=== PATIENT | male | born 1945 | race Caucasian/White ===

== ENCOUNTER 2018-12-15 17:56 | Inpatient (IN) ==
--- NOTE | 2018-12-15 19:21 | DR.EXTPAIN ---
HPI Time seen Time Seen by Provider: 12/15/18 19:18 PCP Primary Care Physician: BECKA Complaint/Symptoms Chief Complaint Doctor Comments: WEAKNESS EXTREMITIES AND ABDOMINAL PAIN WITH NAUSEA. Chief Complaint:: PT STATE HE IS HAVING WEAKNESS TO BILATERAL LEGS AND ARMS. PT STATES HE IS ALSO HAVING ABD PAIN. Nurses notes reviewed Nurses Notes Review: Yes Source History Provided: Patient Mode of arrival Mode of Arrival: Wheelchair Timing Onset of Chief Complaint: 12/08/18 Context History of: None Associated signs and symptoms Associated Signs and Symptoms: None, Weakness, Pain, Abdominal Pain and Nausea PMH PMH Past Medical History: Yes Past Medical History Comment: NEUROPATHY, LOWER AND UPPER BACK PAIN Past Surgical History: Yes Past Surgical History Comment: RT FEMUR SURGERY. Family History History of Family Medical Conditions: No Social History Does patient currently use any type of tobacco product: Yes Have you used tobacco products in the last 12 months: Yes Type of Tobacco Use: Cigarettes Does any household member use tobacco: Yes Alcohol Use: None Do you use any recreational Drugs:: No Lives With: Alone Lives Where: Home infectious screening In the last 2 months have you had wt loss of >10#?: NO Have you had fever, night sweats or hemotysis?: No Have you traveled outside the country in the last 6 months?: No Isolation: Standard ROS Review of Systems Constitutional: Weakness and Fatigue; negative Fever Eyes: No Symptoms Reported ENTM: No Symptoms Reported Respiratoy: No Symptoms Reported Cardiovascular: No Symptoms Reported Gastrointestinal/Abdominal: Abdominal Pain and Nausea Genitourinary: No Symptoms Reported Neurological: Weakness Musculoskeletal: No Symptoms Reported Integumentary: No Symptoms Reported Hematologic/Lymphatic: No Symptoms Reported Endocrine: No Symptoms Reported Psychiatric: No Symptoms Reported All Other Systems: Reviewed and Negative PE Vital Signs Vitals: Temperature 97.8 F Pulse Rate [Right] 83 Pulse Rate 90 Respiratory Rate 20 Blood Pressure [Right Arm] 125/67 Blood Pressure [Left Arm] 134/67 Blood Pressure 103/57 O2 Sat by Pulse Oximetry 92 General Limitations: No Limitations General Appearance: Alert and In No Apparent Distress Head Head Exam: Normal Inspection Eyes Eye exam: Normal Appearance ENT ENT Exam: Normal External Ear Exam Neck Neck Exam: Normal Inspection Chest Chest Inspection: Normal Inspection and Symmetric Chest Wall Rise Respiratory Respiratory Exam: Normal Lung Sounds Bilat Respiratory Exam: Bilateral: Clear to Auscultation Cardiovascular Cardiovascular Exam: Regular Rate and Normal Rhythm Abdominal Exam Abdominal Exam: Normal Bowel Sounds, Soft and Tenderness Abdominal Tenderness: Diffuse and Moderate Extremities Extremities Exam: Normal Inspection Back Back Exam: Normal Inspection Neurological Neurological Exam: Alert, Oriented X3 and CN II-XII Intact Psychiatric Psychiatric Exam: Normal Affect and Normal Mood Skin Skin Exam: Warm, Dry, Intact and Normal Color MDM Differential Diagnosis Differential Diagnosis: Other (ABDOMINAL PAIN, WEAKNESS, BOWEL OBST, UTI.) COURSE Treatment Treatment: SEE ORDERS. Consultation Consultation Comments: PATIENT ADMITTED BY DR. JOVEL. Education/Counseling Education/Counseling: Patient Educated On: Diagnosis ROR Labs Reviewed Laboratory Results Reviewed?: Yes Result Diagrams: 12/22/18 05:12 12/22/18 05:12 Laboratory: WBC 4.8 X10^3/uL (3.6-10.0) 12/22/18 05:12 RBC 2.49 X10^6/uL (4.7-6.0) L 12/22/18 05:12 Hgb 8.6 g/dL (13.5-18.0) L 12/22/18 05:12 Hct 25.8 % (42.0-54.0) L 12/22/18 05:12 MCV 103.7 fL (80.0-100.0) H 12/22/18 05:12 MCH 34.4 pg (27.0-34.0) H 12/22/18 05:12 MCHC 33.2 g/dL (33.0-35.0) 12/22/18 05:12 RDW 14.8 % (11.6-16.5) 12/22/18 05:12 Plt Count 182 X10^3/uL (150.0-450.0) 12/22/18 05:12 Plt Count Comment Adequate (ADEQUATE) 12/20/18 04:50 MPV 7.7 fL (7.4-11.0) 12/22/18 05:12 Neut % (Auto) 71.6 % (42.0-75.0) 12/22/18 05:12 Lymph % (Auto) 18.7 % (21.0-51.0) L 12/22/18 05:12 [place] % (Auto) 8.6 % (0.0-13.0) 12/22/18 05:12 Eos % (Auto) 0.3 % (0.9-2.9) L 12/22/18 05:12 Baso % (Auto) 0.8 % (0.2-1.0) 12/22/18 05:12 Neut # (Auto) 3.5 x10^3/uL (2.2-4.8) 12/22/18 05:12 Lymph # (Auto) 0.9 X10^3/uL (1.3-2.9) L 12/22/18 05:12 [place] # (Auto) 0.4 x10^3/uL (0.3-0.8) 12/22/18 05:12 Eos # (Auto) 0.0 x10^3/uL (0.0-0.2) 12/22/18 05:12 Baso # (Auto) 0.0 X10^3/uL (0.0-0.1) 12/22/18 05:12 Absolute Nucleated RBC 0.1 /100WBC 12/22/18 05:12 Plt Morphology Comment Normal (NORMAL) 12/20/18 04:50 RBC Morphology Normal (NORMAL) 12/20/18 04:50 Sodium 138 mmol/L (136-145) 12/22/18 05:12 Corrected Sodium 138 mmol/L (136-145) 12/22/18 05:12 Potassium 3.7 mmol/L (3.5-5.1) 12/22/18 05:12 Chloride 104 mmol/L (98-107) 12/22/18 05:12 Carbon Dioxide 20.8 mmol/L (21-32) L 12/22/18 05:12 BUN 4 mg/dL (7-18) L 12/22/18 05:12 Creatinine 0.99 mg/dL (0.70-1.30) 12/22/18 05:12 Est GFR (MDRD) Af Amer > 60 (>60) 12/22/18 05:12 Est GFR (MDRD) Non-Af > 60 (>60) 12/22/18 05:12 Glucose 114 mg/dL (65-99) H 12/22/18 05:12 Calcium 7.9 mg/dL (8.5-10.1) L 12/22/18 05:12 Corrected Calcium 9.7 mg/dL (8.5-10.1) 12/22/18 05:12 Magnesium 1.8 mg/dL (1.7-2.9) 12/17/18 05:13 Iron 73 ug/dL (50-175) 12/16/18 04:43 Transferrin 89 mg/dL (202-364) L 12/16/18 04:43 Ferritin 446 ng/mL (26-388) H 12/16/18 04:43 Total Bilirubin 0.20 mg/dL (0.2-1.0) 12/22/18 05:12 AST 40 Units/L (15-37) H 12/22/18 05:12 ALT 12 Units/L (12-78) 12/22/18 05:12 Alkaline Phosphatase 172 Units/L (46-116) H 12/22/18 05:12 Total Protein 4.9 g/dL (6.4-8.2) L 12/22/18 05:12 Albumin 1.7 g/dL (3.4-5.0) L 12/22/18 05:12 Globulin 3.2 g/dL (2.5-4.5) 12/22/18 05:12 Albumin/Globulin Ratio 0.5 Ratio (1.1-2.1) L 12/22/18 05:12 Amylase 9 Units/L (25-115) L 12/17/18 05:13 Lipase 32 Units/L (73-393) L 12/17/18 05:13 Total PSA 0.15 ng/mL (0.13-4.0) 12/16/18 04:43 Vitamin B12 999 pg/mL (193-986) H 12/16/18 04:43 Folate 16.8 ng/mL (>8.6) 12/16/18 04:43 Specimen Type Clean catch urine 12/15/18 21:07 Urine Color Yellow (YELLOW) 12/15/18 21:07 Urine Appearance Clear (CLEAR) 12/15/18 21:07 Urine pH 5.0 (5.0 - 8.0) 12/15/18 21:07 Ur Specific [place] 1.010 (1.000-1.030) 12/15/18 21:07 Urine Protein 1+ (NEGATIVE) 12/15/18 21:07 Urine Glucose (UA) Negative (NEGATIVE) 12/15/18 21:07 Urine Ketones Negative (NEGATIVE) 12/15/18 21:07 Urine Occult Blood Negative (NEGATIVE) 12/15/18 21:07 Urine Nitrite Negative (NEGATIVE) 12/15/18 21:07 Urine Bilirubin Negative (NEGATIVE) 12/15/18 21:07 Urine Urobilinogen Normal (NORMAL) 12/15/18 21:07 Ur Leukocyte Esterase Negative (NEGATIVE) 12/15/18 21:07 Urine RBC None seen /HPF (NONE SEEN) 12/15/18 21:07 Urine WBC 0-2 /HPF (NONE SEEN) 12/15/18 21:07 Ur Squamous Epith Cells Few /HPF (NEGATIVE) 12/15/18 21:07 Amorphous Sediment Trace /HPF (NEGATIVE) 12/15/18 21:07 Urine Bacteria Trace /HPF (NEGATIVE) 12/15/18 21:07 Hyaline Casts Rare /LPF (NEGATIVE) 12/15/18 21:07 Ur Culture Indicated? No/not indicated 12/15/18 21:07 XRAY XRAY Interpreted by: Radiologist XRAY Findings: REPORT ON RECORD NOTED.
[2018-12-15 19:54] LABS: BASOPHILS # (AUTO) 0.1 X10^3/uL (0.0-0.1); BASOPHILS % (AUTO) 1.3 % (0.2-1.0); EOSINOPHILS # (AUTO) 0.1 x10^3/uL (0.0-0.2); EOSINOPHILS % (AUTO) 0.8 % (0.9-2.9); HEMATOCRIT 32.6 % (42.0-54.0); LYMPHOCYTES % (AUTO) 27.7 % (21.0-51.0); MEAN CORPUSCULAR HEMOGLOBIN 34.4 pg (27.0-34.0); MEAN CORPUSCULAR HGB CONC 33.7 g/dL (33.0-35.0); MEAN CORPUSCULAR VOLUME 102.1 fL (80.0-100.0); MEAN PLATELET VOLUME 7.6 fL (7.4-11.0); MONOCYTES # (AUTO) 0.5 x10^3/uL (0.3-0.8); MONOCYTES % (AUTO) 7.6 % (0.0-13.0); NEUTROPHILS # (AUTO) 4.5 x10^3/uL (2.2-4.8); NEUTROPHILS % (AUTO) 62.6 % (42.0-75.0); PLATELET COUNT 349 X10^3/uL (150.0-450.0); RED BLOOD COUNT 3.19 X10^6/uL (4.7-6.0); RED CELL DISTRIBUTION WIDTH 14.8 % (11.6-16.5); WHITE BLOOD COUNT 7.2 X10^3/uL (3.6-10.0)
[2018-12-15 20:03] LABS: ALANINE AMINOTRANSFERASE 18 Units/L (12-78); ALBUMIN 2.2 g/dL (3.4-5.0); ALKALINE PHOSPHATASE 269 Units/L (46-116); AMYLASE 10 Units/L (25-115); ASPARTATE AMINO TRANSFERASE 113 Units/L (15-37); BLOOD UREA NITROGEN 7 mg/dL (7-18); CALCIUM 8.2 mg/dL (8.5-10.1); CARBON DIOXIDE 20.8 mmol/L (21-32); CHLORIDE 101 mmol/L (98-107); COR CA(FOR HYPOALB) 9.6 mg/dL (8.5-10.1); COR NA(FOR HYPERGLY) 137 mmol/L (136-145); CREATININE 1.36 mg/dL (0.70-1.30); LIPASE 31 Units/L (73-393); SODIUM 137 mmol/L (136-145); eGFR NON BLACK RACES 55 (>60)
--- NOTE | 2018-12-15 21:13 | RAD ---
HISTORY: Abdominal pain, nausea Study: Acute abdominal series Comparison: None Findings: There is a single mildly dilated small bowel loop in the mid abdomen with the remaining bowel loops appearing normal in caliber. No gross free intraperitoneal air. No pathological soft tissue mass or calcification can be observed. There are severe degenerative changes of the bilateral hip joints that may be related to avascular necrosis with a partially visualized screw in the right femoral head. Lungs are clear. IMPRESSION: 1. Nonspecific bowel gas pattern with single mildly dilated small bowel loop in the mid to lower abdomen; the remaining bowel loops are unremarkable. Reported By:
[2018-12-15 21:19] LABS: BILIRUBIN,URINE NEGATIVE (NEGATIVE); BLOOD/HEMOGLOBIN,URINE NEGATIVE (NEGATIVE); GLUCOSE, URINE NEGATIVE (NEGATIVE); KETONES,URINE NEGATIVE (NEGATIVE); LEUKOCYTE ESTERASE ,URINE NEGATIVE (NEGATIVE); NITRITES,URINE NEGATIVE (NEGATIVE); PROTEIN,URINE 1+ (NEGATIVE); UROBILINOGEN,URINE NORMAL (NORMAL)
[2018-12-15 21:22] LABS: APPEARANCE,URINE CLEAR (CLEAR); COLOR,URINE YELLOW (YELLOW)
[2018-12-15 21:23] LABS: AMORPHOUS SEDIMENT,UR TRACE /HPF (NEGATIVE); BACTERIA,URINE TRACE /HPF (NEGATIVE); HYALINE CASTS, URINE RARE /LPF (NEGATIVE); RBC,URINE NONE SEEN /HPF (NONE SEEN); SQUAMOUS EPITHELIAL CELL,UR FEW /HPF (NEGATIVE)
[2018-12-15] MEDS ORDERED: NEURONTIN CAP 100 MG PO PRN (22:51)
[2018-12-15] MEDS ORDERED: PATIENT'S HOME MEDICATION (Oxycodone-Acetaminophen [Oxycodone-Acetaminophen] 1 TAB) PO PRN (22:51)
[2018-12-15] MEDS: ROXICODONE TAB 5 MG PO PRN (23:14)
[2018-12-15] MEDS: NS 1000 ML 1,000 ML IV SCH (23:14)
[2018-12-15] MEDS: TYLENOL 325 MG TAB PO PRN (23:15)
[2018-12-15] MEDS: PREVACID PO SCH (23:15)
[2018-12-16 00:41] VITALS: BMI 25.2
[2018-12-16] MEDS ORDERED: LANTISEPTIC ONE (01:28)
[2018-12-16] MEDS: LANTISEPTIC TOP PRN ×2 (01:30→23:20)
[2018-12-16] MEDS ORDERED: POTASSIUM CHL 40 MEQ/NS 0.45% 500 ML IV PRN (02:17)
[2018-12-16] MEDS ORDERED: KLOR-CON PO PRN (02:17)
[2018-12-16] MEDS ORDERED: POTASSIUM CHL 60 MEQ/NS 0.45% 500 ML IV PRN (02:17)
[2018-12-16] MEDS ORDERED: POTASSIUM CHLORIDE LIQ 20 MEQ UDC PO PRN (02:17)
[2018-12-16] MEDS ORDERED: K-RIDER 10 MEQ/NS 100 ML 10 MEQ/100 ML BAG IV PRN (02:17)
[2018-12-16] MEDS ORDERED: MICRO K EXTEN CAP 10 MEQ PO PRN (02:17)
[2018-12-16] MEDS ORDERED: KLOR-CON PO ONE (02:21)
[2018-12-16] MEDS ORDERED: MAGNESIUM SULFATE 1 GRAM/100 mL PREMIX 4 G/400 ML BAG IV ONE (02:22)
[2018-12-16] MEDS: MAGNESIUM SULFATE 1 GRAM/100 mL PREMIX 1 GM/100 ML BAG IV PRN ×4 (02:25→05:32)
[2018-12-16] MEDS: ROXICODONE TAB 5 MG PO PRN ×5 (05:10→23:14)
[2018-12-16] MEDS: TYLENOL 325 MG TAB PO PRN ×3 (05:11→23:13)
[2018-12-16 05:21] LABS: BASOPHILS # (AUTO) 0.1 X10^3/uL (0.0-0.1); BASOPHILS % (AUTO) 1.1 % (0.2-1.0); EOSINOPHILS # (AUTO) 0.1 x10^3/uL (0.0-0.2); EOSINOPHILS % (AUTO) 0.7 % (0.9-2.9); HEMATOCRIT 31.9 % (42.0-54.0); HEMOGLOBIN 10.6 g/dL (13.5-18.0); LYMPHOCYTES # (AUTO) 2.5 X10^3/uL (1.3-2.9); LYMPHOCYTES % (AUTO) 30.5 % (21.0-51.0); MEAN CORPUSCULAR HGB CONC 33.1 g/dL (33.0-35.0); MEAN CORPUSCULAR VOLUME 102.9 fL (80.0-100.0); MEAN PLATELET VOLUME 7.4 fL (7.4-11.0); MONOCYTES # (AUTO) 0.8 x10^3/uL (0.3-0.8); MONOCYTES % (AUTO) 9.3 % (0.0-13.0); NEUTROPHILS # (AUTO) 4.7 x10^3/uL (2.2-4.8); NEUTROPHILS % (AUTO) 58.4 % (42.0-75.0); PLATELET COUNT 298 X10^3/uL (150.0-450.0); RED CELL DISTRIBUTION WIDTH 14.8 % (11.6-16.5); WHITE BLOOD COUNT 8.1 X10^3/uL (3.6-10.0)
[2018-12-16 05:36] LABS: ALANINE AMINOTRANSFERASE 20 Units/L (12-78); ALKALINE PHOSPHATASE 251 Units/L (46-116); ASPARTATE AMINO TRANSFERASE 118 Units/L (15-37); BLOOD UREA NITROGEN 6 mg/dL (7-18); CARBON DIOXIDE 20.8 mmol/L (21-32); CHLORIDE 103 mmol/L (98-107); COR CA(FOR HYPOALB) 9.6 mg/dL (8.5-10.1); SODIUM 139 mmol/L (136-145); TOTAL PROTEIN 5.5 g/dL (6.4-8.2); eGFR NON BLACK RACES 53 (>60)
[2018-12-16 05:49] LABS: IRON 73 ug/dL (50-175)
[2018-12-16] MEDS: FLONASE NASAL SPRAY ENOSTRIL SCH (08:34)
[2018-12-16] MEDS: K-DUR TAB 20 MEQ PO PRN (08:35)
[2018-12-16] MEDS: NICOTINE PATCH TD SCH ×2 (08:35)
[2018-12-16] MEDS: PREVACID PO SCH (08:35)
[2018-12-16] MEDS ORDERED: ZOFRAN INJ 4 MG VIAL IVP PRN (08:42)
[2018-12-16] MEDS ORDERED: ZYLOPRIM PO SCH (09:00)
[2018-12-16] MEDS: MAG-OX TAB PO SCH (10:16)
[2018-12-16] MEDS: FLOMAX PO SCH (13:48)
--- NOTE | 2018-12-16 15:08 | DR.H&P ---
H&P - History & Physical for Day of: H&P Date: 12/15/18 - Chief Complaint Chief Complaint: WEAKNESS, ABDOMINAL PAIN, N/V - History of Present Illness History of Present Illness: IS A 73 YEAR OLD PATIENT OF OURS WHO PRESENTED TO THE ER WITH COMPLAINTS OF WEAKNESS TO BILATERAL ARMS AND LEGS WELL ABDOMINAL PAIN WITH ASSOICATED NAUSEA AND VOMITING. HE REPORTS THAT SYMPTOMS HAVE BEEN PRESENT FOR APPROXIMATELY ONE WEEK. HE REPORTS BEING UNABLE TO WALK WITHOUT THE ASSISTANCE OF HIS GRANDSON. ON ARRIVAL, VITLAS WERE 97.0-90-20-96%-103/57. LABS WERE OBTAINED. ABNORMAL LAB VALUES INCLUDE THE FOLLOWING: RBC 3.19, HGB 11.0, HCT 32.6, POTASSIUM 3.3, CARBON DIOXIDE 20.8, CREATININE 1.36, GLUCOSE 113, CALCIUM 8.2, MAGNESIUM 1.2, AST 113, ALK PHOS 269, TOTAL PROTEIN 6.0, ALBUMIN 2.2, AMYLASE 10, LIPASE 31. AN ABDOMEN XRAY WAS OBTA INED AND REVEALED: Nonspecific bowel gas pattern with single mildly dilated small bowel loop in the mid to lower abdomen; the remaining bowel loops are unremarkable. HE WAS ADMITTED FOR FURTHER EVALUATION AND TREATMENT OF GENERALIZED WEAKNESS, DEHYDRATION, AND ABDOMINAL PAIN. HE WAS STARTED ON NORMAL SALINE AT 80ML/HR. WE PLAN TO OBTAIN A GALLBLADDER US IN THE MORNING. OTHERWISE, WE WILL FOLLOW UP WITH AM LABS AND CONTINUE TO MONITOR. - Past Medical History Past Medical History: GERD, Gout - Past Surgical History Surgical History: Ortho Surgery, Other - Family History Family Medical History: Diabetes Mellitus, Hypertension - Social History Does patient currently use any type of tobacco product: Yes Have you used tobacco products in the last 12 months: Yes Type of Tobacco Use: Cigarettes How many years tobacco product used: 55 Does any household member use tobacco: Yes Alcohol Use: None Drug Use: None - Medications Home Medications: NSAIDS (Non-Steroidal Anti-Inflamma Allergy (Verified 12/11/18 13:20) CONTINUE taking the following medications lansoprazole [Prevacid] 30 mg PO QDAY 12/15/18 [History] - Review of Systems Constitutional: See HPI, Weakness Eyes: No Symptoms Reported ENT: No Symptoms Reported Respiratory: No Symptoms Reported Cardiovascular: No Symptoms Reported Gastrointestinal: Nausea, Vomiting, Abdominal Pain Genitourinary: No Symptoms Reported Musculoskeletal: No Symptoms Reported Skin: No Symptoms Reported Neurological: Weakness - Physical Exam Vital Signs: Temperature 98.1 F Pulse Rate [Right] 84 Pulse Rate 90 Respiratory Rate 20 Blood Pressure [Right Arm] 131/70 Blood Pressure [Left Arm] 114/55 Blood Pressure 103/57 O2 Sat by Pulse Oximetry 93 Oriented: Normal Eyes: Normal Ear: Normal Nose: Normal Throat: Normal Respiratory: Diminished Throughout Cardiovascular: Normal : Normal Auscultation: Bowel Sounds: Normal Palpation: Normal Tenderness: Normal Skin: Normal Musculoskeletal: Normal Psychiatric: Normal Mood Description: Calm Affect: Normal Speech Pattern: Clear - Assessment/Plan (1) Dehydration Status: Acute Plan: NORMAL SALINE AT 80ML/HR, CONTINUE TO MONITOR (2) Abdominal pain Qualifiers: Abdominal location: generalized Qualified Code(s): R10.84 - Generalized abdominal pain Status: Acute Plan: GALLBLADDER US TODAY, CONTINUE TO MONITOR (3) Anemia Qualifiers: Anemia type: unspecified type Qualified Code(s): D64.9 - Anemia, unspecified Status: Acute (4) Weakness Status: Acute Plan: PHYSICAL THERAPY, CONTINUE TO MONITOR - Allergies Allergies/Adverse Reactions: Allergies Allergy/AdvReac Type Severity Reaction Status Date / Time NSAIDS (Non-Steroidal Allergy Verified 12/11/18 13:20 Anti-Inflamma
[2018-12-16] MEDS: NS 1000 ML 1,000 ML IV SCH (15:41)
--- NOTE | 2018-12-16 16:36 | US ---
HISTORY: Right upper quadrant pain Study: Right upper quadrant ultrasound: Multiplanar ultrasonographic examination of the right upper abdominal quadrant was performed. Comparison: None Findings: On the images submitted to me the liver is mildly to moderately fatty infiltrated. No evidence of intrahepatic biliary duct dilatation is noted. Vascular flow was in normal direction. The gallbladder wall appears nodular with several echogenic foci present. I see no evidence of ring down, however, this could be due to adenomyomatosis. There also appears to be probably a gallstone measuring at least 9.5 mm in maximum dimension. The gallbladder wall overall is mildly thickened. The common bile duct is normal at 1 mm. The right kidney as visualized is small measuring 7.8 cm in length. Cortex is measured at 11.2 mm. The pancreas is moderately obscured secondary to bowel gas. The abdominal aorta shows [id number] atherosclerotic change. No evidence of aneurysm is noted. IMPRESSION: 1. Moderate fatty infiltration of the liver. 2. Mildly contracted thick-walled gallbladder suggestive of possibility of chronic cholecystitis. In addition there appears to be findings suggesting adenomyomatosis as well as possibly calcifications within the gallbladder wall and gallstones. 3. I see no evidence of pericholecystic fluid or gallbladder wall thickening. 4. Moderately atrophic kidney with moderate cortical atrophy. Reported By:
--- NOTE | 2018-12-16 21:24 | PCM.PROG ---
Progress Note - Progress Note for Day of Date of Exam: 12/16/18 - Subjective Subjective: WAS ADMITTED FOR DEHYDRATION, ABDOMINAL PAIN, AND GENERALIZED WEAKNESS. HE REPORTS DIFFICULTY URINATING TODAY. ON EXAMINATION, HEART IS REGULAR IN RATE AND RHYTHM. BILATERAL LUNGS ARE NOTED WITH DIMINISHED LUNG SOUNDS THROUGHOUT. ABDOMEN IS ROUND, SOFT, AND NOTED WITH DIFFUSE TENDER NESS THROUGHOUT. NORMAL BOWEL SOUNDS NOTED IN ALL QUADRANTS. HIS VITALS THIS MORNING ARE 98.1-69-20-94%-129/79. LABS WERE OBTAINED. ABNORMAL LAB VALUES INCLUDE THE FOLLOWING: RBC 3.10, HGB 10.6, HCT 31.9, CARBON DIOXIDE 20.8, BUN 6, CREATININE 1.40, GLUCOSE 103, CALCIUM 8.0, TRANSFERRIN 89, FERRITIN 446, AST 118, ALK PHOS 251, TOTAL PROTEIN 5.5, ALBUMIN 2.0, VITAMIN B12 999. WE WILL OBTAIN A GALLBLADDER US AND OBTAIN A PSA LEVEL TODAY. WE WILL START FLOMAX 0.4MG PO DAILY. OTHERWISE, WE WILL FOLLOW UP WITH AM LABS AND CONTINUE TO MONITOR. - Past Medical Family Social History Past Med/Fam/Surg Hx: No changes since H&P Allergies: Allergies NSAIDS (Non-Steroidal Anti-Inflamma Allergy (Verified 12/11/18 13:20) - Review of Systems ROS: No change since H&P - Vital Signs and I&O's Vital Signs: Temperature 98.4 F Pulse Rate [Right] 80 Pulse Rate 90 Respiratory Rate 20 Blood Pressure [Right Arm] 147/76 Blood Pressure [Left Arm] 114/55 Blood Pressure 103/57 O2 Sat by Pulse Oximetry 97 Intake and Output: Intake & Output 12/14/18 12/15/18 12/16/18 12/17/18 11:59 11:59 11:59 11:59 Intake Total 720 / 720 1087 / 1087 Output Total 425 / 425 150 / 150 Balance 295 / 295 937 / 937 - Physical Exam Oriented: Normal Eyes: Normal Ear: Normal Nose: Normal Throat: Normal Respiratory: Generalized, Diminished Cardiovascular: Normal : Normal Auscultation: Bowel Sounds: Normal Tenderness: Diffuse, Moderate. negative: Rebound, Guarding, Rigidity Skin: Normal Musculoskeletal: Normal Psychiatric: Normal Mood Description: Calm Affect: Normal Speech Pattern: Clear - Laboratory and Diagnostics Result Diagrams: 12/16/18 04:43 12/16/18 04:43 Labs: Laboratory WBC 8.1 X10^3/uL (3.6-10.0) 12/16/18 04:43 RBC 3.10 X10^6/uL (4.7-6.0) L 12/16/18 04:43 Hgb 10.6 g/dL (13.5-18.0) L 12/16/18 04:43 Hct 31.9 % (42.0-54.0) L 12/16/18 04:43 MCV 102.9 fL (80.0-100.0) H 12/16/18 04:43 MCH 34.0 pg (27.0-34.0) 12/16/18 04:43 MCHC 33.1 g/dL (33.0-35.0) 12/16/18 04:43 RDW 14.8 % (11.6-16.5) 12/16/18 04:43 Plt Count 298 X10^3/uL (150.0-450.0) 12/16/18 04:43 MPV 7.4 fL (7.4-11.0) 12/16/18 04:43 Neut % (Auto) 58.4 % (42.0-75.0) 12/16/18 04:43 Lymph % (Auto) 30.5 % (21.0-51.0) 12/16/18 04:43 [place] % (Auto) 9.3 % (0.0-13.0) 12/16/18 04:43 Eos % (Auto) 0.7 % (0.9-2.9) L 12/16/18 04:43 Baso % (Auto) 1.1 % (0.2-1.0) H 12/16/18 04:43 Neut # (Auto) 4.7 x10^3/uL (2.2-4.8) 12/16/18 04:43 Lymph # (Auto) 2.5 X10^3/uL (1.3-2.9) 12/16/18 04:43 [place] # (Auto) 0.8 x10^3/uL (0.3-0.8) 12/16/18 04:43 Eos # (Auto) 0.1 x10^3/uL (0.0-0.2) 12/16/18 04:43 Baso # (Auto) 0.1 X10^3/uL (0.0-0.1) 12/16/18 04:43 Absolute Nucleated RBC 0.1 /100WBC 12/16/18 04:43 Sodium 139 mmol/L (136-145) 12/16/18 04:43 Corrected Sodium TNP 12/16/18 04:43 Potassium 3.7 mmol/L (3.5-5.1) 12/16/18 04:43 Chloride 103 mmol/L (98-107) 12/16/18 04:43 Carbon Dioxide 20.8 mmol/L (21-32) L 12/16/18 04:43 BUN 6 mg/dL (7-18) L 12/16/18 04:43 Creatinine 1.40 mg/dL (0.70-1.30) H 12/16/18 04:43 Est GFR (MDRD) Af Amer > 60 (>60) 12/16/18 04:43 Est GFR (MDRD) Non-Af 53 (>60) L 12/16/18 04:43 Glucose 103 mg/dL (65-99) H 12/16/18 04:43 Calcium 8.0 mg/dL (8.5-10.1) L 12/16/18 04:43 Corrected Calcium 9.6 mg/dL (8.5-10.1) 12/16/18 04:43 Magnesium 2.0 mg/dL (1.7-2.9) 12/16/18 04:43 Iron 73 ug/dL (50-175) 12/16/18 04:43 Transferrin 89 mg/dL (202-364) L 12/16/18 04:43 Ferritin 446 ng/mL (26-388) H 12/16/18 04:43 Total Bilirubin 0.20 mg/dL (0.2-1.0) 12/16/18 04:43 AST 118 Units/L (15-37) H 12/16/18 04:43 ALT 20 Units/L (12-78) 12/16/18 04:43 Alkaline Phosphatase 251 Units/L (46-116) H 12/16/18 04:43 Total Protein 5.5 g/dL (6.4-8.2) L 12/16/18 04:43 Albumin 2.0 g/dL (3.4-5.0) L 12/16/18 04:43 Globulin 3.5 g/dL (2.5-4.5) 12/16/18 04:43 Albumin/Globulin Ratio 0.6 Ratio (1.1-2.1) L 12/16/18 04:43 Amylase 10 Units/L (25-115) L 12/15/18 19:30 Lipase 31 Units/L (73-393) L 12/15/18 19:30 Total PSA 0.15 ng/mL (0.13-4.0) 12/16/18 04:43 Vitamin B12 999 pg/mL (193-986) H 12/16/18 04:43 Folate 16.8 ng/mL (>8.6) 12/16/18 04:43 Specimen Type Clean catch urine 12/15/18 21:07 Urine Color Yellow (YELLOW) 12/15/18 21:07 Urine Appearance Clear (CLEAR) 12/15/18 21:07 Urine pH 5.0 (5.0 - 8.0) 12/15/18 21:07 Ur Specific [place] 1.010 (1.000-1.030) 12/15/18 21:07 Urine Protein 1+ (NEGATIVE) 12/15/18 21:07 Urine Glucose (UA) Negative (NEGATIVE) 12/15/18 21:07 Urine Ketones Negative (NEGATIVE) 12/15/18 21:07 Urine Occult Blood Negative (NEGATIVE) 12/15/18 21:07 Urine Nitrite Negative (NEGATIVE) 12/15/18 21:07 Urine Bilirubin Negative (NEGATIVE) 12/15/18 21:07 Urine Urobilinogen Normal (NORMAL) 12/15/18 21:07 Ur Leukocyte Esterase Negative (NEGATIVE) 12/15/18 21:07 Urine RBC None seen /HPF (NONE SEEN) 12/15/18 21:07 Urine WBC 0-2 /HPF (NONE SEEN) 12/15/18 21:07 Ur Squamous Epith Cells Few /HPF (NEGATIVE) 12/15/18 21:07 Amorphous Sediment Trace /HPF (NEGATIVE) 12/15/18 21:07 Urine Bacteria Trace /HPF (NEGATIVE) 12/15/18 21:07 Hyaline Casts Rare /LPF (NEGATIVE) 12/15/18 21:07 Ur Culture Indicated? No/not indicated 12/15/18 21:07 - Plan (1) Dehydration Status: Acute Plan: NORMAL SALINE AT 80ML/HR, CONTINUE TO MONITOR (2) Abdominal pain Status: Acute Qualifiers: Abdominal location: generalized Qualified Code(s): R10.84 - Generalized abdominal pain Plan: GALLBLADDER US TODAY, CONTINUE TO MONITOR (3) Anemia Status: Acute Qualifiers: Anemia type: unspecified type Qualified Code(s): D64.9 - Anemia, unspecified (4) Weakness Status: Acute Plan: PHYSICAL THERAPY, CONTINUE TO MONITOR
[2018-12-17] MEDS: ROXICODONE TAB 5 MG PO PRN ×3 (05:21→18:58)
[2018-12-17] MEDS: TYLENOL 325 MG TAB PO PRN ×2 (05:22→11:05)
[2018-12-17] MEDS: NS 1000 ML 1,000 ML IV SCH ×4 (05:40→21:24)
[2018-12-17 06:05] LABS: BASOPHILS % (AUTO) 0.9 % (0.2-1.0); EOSINOPHILS # (AUTO) 0.1 x10^3/uL (0.0-0.2); EOSINOPHILS % (AUTO) 1.5 % (0.9-2.9); HEMATOCRIT 26.5 % (42.0-54.0); HEMOGLOBIN 8.9 g/dL (13.5-18.0); LYMPHOCYTES # (AUTO) 1.8 X10^3/uL (1.3-2.9); LYMPHOCYTES % (AUTO) 39.5 % (21.0-51.0); MEAN CORPUSCULAR HEMOGLOBIN 34.5 pg (27.0-34.0); MEAN CORPUSCULAR HGB CONC 33.7 g/dL (33.0-35.0); MEAN CORPUSCULAR VOLUME 102.5 fL (80.0-100.0); MEAN PLATELET VOLUME 7.1 fL (7.4-11.0); MONOCYTES # (AUTO) 0.4 x10^3/uL (0.3-0.8); MONOCYTES % (AUTO) 8.9 % (0.0-13.0); NEUTROPHILS # (AUTO) 2.2 x10^3/uL (2.2-4.8); NEUTROPHILS % (AUTO) 49.2 % (42.0-75.0); PLATELET COUNT 189 X10^3/uL (150.0-450.0); RED BLOOD COUNT 2.58 X10^6/uL (4.7-6.0); RED CELL DISTRIBUTION WIDTH 14.9 % (11.6-16.5); WHITE BLOOD COUNT 4.5 X10^3/uL (3.6-10.0)
--- NOTE | 2018-12-17 06:16 | RAD ---
HISTORY: Right upper quadrant pain Study: Chest AP portable Comparison: None Findings: The heart is within normal limits in size. The ivett are normal. The lungs are hyperinflated but free of acute alveolar infiltrates. No pleural effusions are identified. The bony thorax is unremarkable. IMPRESSION: Lungs hyperinflated but clear Reported By:
[2018-12-17 06:30] LABS: ALANINE AMINOTRANSFERASE 15 Units/L (12-78); ALBUMIN 1.6 g/dL (3.4-5.0); ALKALINE PHOSPHATASE 204 Units/L (46-116); AMYLASE 9 Units/L (25-115); ASPARTATE AMINO TRANSFERASE 61 Units/L (15-37); BLOOD UREA NITROGEN 6 mg/dL (7-18); CALCIUM 7.9 mg/dL (8.5-10.1); CARBON DIOXIDE 19.9 mmol/L (21-32); CHLORIDE 107 mmol/L (98-107); COR CA(FOR HYPOALB) 9.8 mg/dL (8.5-10.1); CREATININE 1.14 mg/dL (0.70-1.30); LIPASE 32 Units/L (73-393); MAGNESIUM 1.8 mg/dL (1.7-2.9); SODIUM 140 mmol/L (136-145); TOTAL PROTEIN 4.7 g/dL (6.4-8.2); eGFR NON BLACK RACES > 60 (>60)
[2018-12-17] MEDS: NICOTINE PATCH TD SCH (08:57)
[2018-12-17] MEDS: FLONASE NASAL SPRAY ENOSTRIL SCH (09:08)
[2018-12-17] MEDS: FLOMAX PO SCH ×2 (09:08→12:59)
[2018-12-17] MEDS: ZYLOPRIM PO SCH ×2 (09:08→12:58)
[2018-12-17] MEDS: MAG-OX TAB PO SCH ×2 (09:09→12:58)
[2018-12-17] MEDS: PREVACID PO SCH (09:09)
[2018-12-17] MEDS: PROTONIX INJ 40 MG VIAL IVP SCH ×2 (11:03→21:22)
[2018-12-17] MEDS: NEURONTIN CAP 300 MG PO SCH ×3 (11:05→21:22)
[2018-12-17] MEDS: CYMBALTA PO SCH (11:05)
[2018-12-17] MEDS: PEPCID 20 MG IV PREMIX* 20 MG/50 ML BAG IV SCH ×2 (11:06→21:22)
[2018-12-17] MEDS ORDERED: ZOFRAN INJ 4 MG VIAL IVP PRN (12:05)
[2018-12-17] MEDS: DILAUDID INJ IVP PRN ×2 (12:58→21:24)
--- NOTE | 2018-12-17 14:01 | CT ---
HISTORY: Nausea, vomiting, abdominal pain Study: CT abdomen and pelvis without contrast Comparison: Ultrasound 12/16/2018 Technique: Multiple axial images of the abdomen and pelvis were obtained without IV contrast. Dose reduction techniques including Automated Exposure Control (AEC) and adjustment of mA and kV were utilized. Findings: Please note evaluation is limited without use of IV contrast. There are small bilateral pleural effusions and emphysematous changes seen at the lung bases. The liver, spleen, pancreas, and adrenal glands are unremarkable in their unenhanced CT appearance. Cholelithiasis is noted. No renal calculi or obstructive uropathy identified. Ureters are normal. No free intraperitoneal air. There is circumferential colonic bowel wall edema at the transverse and proximal descending colon and within the rectosigmoid colon suggestive of nonspecific colitis. There is perirectal and presacral fat stranding as well as a small amount of free fluid in the pelvis that, likely reactive in nature. The appendix is normal. 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 There is partially visualized trochanteric femoral nail in the right hip. Calcified plaque is seen within the aorta. No pathologically enlarged lymph nodes are identified. Urinary bladder is not well distended. IMPRESSION: 1. Scattered areas of circumferential colonic bowel wall edema in the transverse, descending and rectosigmoid colon suggestive of nonspecific colitis. There is associated perirectal and presacral fat stranding with a small amount of free fluid in the pelvis, likely reactive in nature. 2. Cholelithiasis. 3. Small bilateral pleural effusions. 4. Avascular necrosis of the bilateral hips. Reported By:
[2018-12-17] MEDS: CIPRO IV 400 MG PREMIX* 400 MG/200 ML IV.SOLN. IV SCH ×2 (18:17→21:22)
[2018-12-17] MEDS: FLAGYL IV PREMIX 500 MG BAG 500 MG/100 ML BAG IV SCH (20:45)
--- NOTE | 2018-12-17 21:17 | PCM.PROG ---
Progress Note - Progress Note for Day of Date of Exam: 12/17/18 - Subjective Subjective: WAS ADMITTED FOR DEHYDRATION, ABDOMINAL PAIN, AND GENERALIZED WEAKNESS. HE CONTINUES WITH COMPLAINTS OF ABDOMINAL PAIN TODAY. HE ALSO REPORTS PAIN TO BILATERAL UPPER AND LOWER EXTREMITIES. ON EXAMINATION, HEART IS REGULAR IN RATE AND RHYTHM. BILATERAL LUNGS ARE NOTED WITH DIMINISHED LUNG SOUNDS THROUGHOUT. ABDOMEN IS ROUND, SOFT, AND NOTED WITH DIFFUSE TENDERNESS THROUGHOUT. NORMAL BOWEL SOUNDS NOTED IN ALL QUADRANTS. HIS VITALS THIS MORNING ARE 98.2-85-18-96%-128/71. LABS WERE OBTAINED. ABNORMAL LAB VALUES INCLUDE THE FOLLOWING: RBC 2.58, HGB 8.9, HCT 26.5, CARBON DIOXIDE 19.9, BUN 6, CALCIUM 7.9, AST 61, ALK PHOS 204, TOTAL PROTEIN 4.7, ALBUMIN 1.6, AMYLASE 9, LIPASE 32. GALLBLADDER US REVEALED: Moderate fatty infiltration of the liver. Mildly contracted thick-walled gallbladder suggestive of possibility of chronic cholecystitis. In addition there appears to be findings suggesting adenomyomatosis as well as possibly calcifications within the gallbladder wall and gallstones. I see no evidence of pericholecystic fluid or gallbladder wall thickening. Moderately atrophic kidney with moderate cortical atrophy. TODAY, WE WILL START OTHERWISE, PEPCID IV, PROTNIX IV, CYMBALTA 30MG PO DAILY, AND GABAPENTIN 300MG PO TID. WE WILL CONSULT FOR POSSIBLE CHOLECYST ECTOMY. OTHERWISE, WE WILL FOLLOW UP WITH AM LABS AND CONTINUE TO MONITOR. - Past Medical Family Social History Past Med/Fam/Surg Hx: No changes since H&P Allergies: Allergies NSAIDS (Non-Steroidal Anti-Inflamma Allergy (Verified 12/11/18 13:20) - Review of Systems ROS: No change since H&P - Vital Signs and I&O's Vital Signs: Temperature 97.9 F Pulse Rate [Right] 80 Pulse Rate 90 Respiratory Rate 20 Blood Pressure [Right Arm] 128/71 Blood Pressure [Left Arm] 100/60 Blood Pressure 103/57 O2 Sat by Pulse Oximetry 94 Intake and Output: Intake & Output 12/15/18 12/16/18 12/17/18 12/18/18 11:59 11:59 11:59 11:59 Intake Total 720 / 720 1787 / 1787 990 / 990 Output Total 425 / 425 550 / 550 350 / 350 Balance 295 / 295 1237 / 1237 640 / 640 - Physical Exam Oriented: Normal Eyes: Normal Ear: Normal Nose: Normal Throat: Normal Respiratory: Generalized, Diminished Cardiovascular: Normal : Normal Auscultation: Bowel Sounds: Normal Palpation: Normal Tenderness: Diffuse, Moderate. negative: Rebound, Guarding, Rigidity Skin: Normal Musculoskeletal: Normal Psychiatric: Normal Mood Description: Calm Affect: Normal Speech Pattern: Clear, Appropriate - Laboratory and Diagnostics Result Diagrams: 12/17/18 05:13 12/17/18 05:13 Labs: Laboratory WBC 4.5 X10^3/uL (3.6-10.0) 12/17/18 05:13 RBC 2.58 X10^6/uL (4.7-6.0) L 12/17/18 05:13 Hgb 8.9 g/dL (13.5-18.0) L 12/17/18 05:13 Hct 26.5 % (42.0-54.0) L 12/17/18 05:13 MCV 102.5 fL (80.0-100.0) H 12/17/18 05:13 MCH 34.5 pg (27.0-34.0) H 12/17/18 05:13 MCHC 33.7 g/dL (33.0-35.0) 12/17/18 05:13 RDW 14.9 % (11.6-16.5) 12/17/18 05:13 Plt Count 189 X10^3/uL (150.0-450.0) 12/17/18 05:13 MPV 7.1 fL (7.4-11.0) L 12/17/18 05:13 Neut % (Auto) 49.2 % (42.0-75.0) 12/17/18 05:13 Lymph % (Auto) 39.5 % (21.0-51.0) 12/17/18 05:13 [place] % (Auto) 8.9 % (0.0-13.0) 12/17/18 05:13 Eos % (Auto) 1.5 % (0.9-2.9) 12/17/18 05:13 Baso % (Auto) 0.9 % (0.2-1.0) 12/17/18 05:13 Neut # (Auto) 2.2 x10^3/uL (2.2-4.8) 12/17/18 05:13 Lymph # (Auto) 1.8 X10^3/uL (1.3-2.9) 12/17/18 05:13 [place] # (Auto) 0.4 x10^3/uL (0.3-0.8) 12/17/18 05:13 Eos # (Auto) 0.1 x10^3/uL (0.0-0.2) 12/17/18 05:13 Baso # (Auto) 0.0 X10^3/uL (0.0-0.1) 12/17/18 05:13 Absolute Nucleated RBC 0.1 /100WBC 12/17/18 05:13 Sodium 140 mmol/L (136-145) 12/17/18 05:13 Corrected Sodium TNP 12/17/18 05:13 Potassium 4.1 mmol/L (3.5-5.1) 12/17/18 05:13 Chloride 107 mmol/L (98-107) 12/17/18 05:13 Carbon Dioxide 19.9 mmol/L (21-32) L 12/17/18 05:13 BUN 6 mg/dL (7-18) L 12/17/18 05:13 Creatinine 1.14 mg/dL (0.70-1.30) 12/17/18 05:13 Est GFR (MDRD) Af Amer > 60 (>60) 12/17/18 05:13 Est GFR (MDRD) Non-Af > 60 (>60) 12/17/18 05:13 Glucose 84 mg/dL (65-99) 12/17/18 05:13 Calcium 7.9 mg/dL (8.5-10.1) L 12/17/18 05:13 Corrected Calcium 9.8 mg/dL (8.5-10.1) 12/17/18 05:13 Magnesium 1.8 mg/dL (1.7-2.9) 12/17/18 05:13 Iron 73 ug/dL (50-175) 12/16/18 04:43 Transferrin 89 mg/dL (202-364) L 12/16/18 04:43 Ferritin 446 ng/mL (26-388) H 12/16/18 04:43 Total Bilirubin 0.30 mg/dL (0.2-1.0) 12/17/18 05:13 AST 61 Units/L (15-37) H 12/17/18 05:13 ALT 15 Units/L (12-78) 12/17/18 05:13 Alkaline Phosphatase 204 Units/L (46-116) H 12/17/18 05:13 Total Protein 4.7 g/dL (6.4-8.2) L 12/17/18 05:13 Albumin 1.6 g/dL (3.4-5.0) L 12/17/18 05:13 Globulin 3.1 g/dL (2.5-4.5) 12/17/18 05:13 Albumin/Globulin Ratio 0.5 Ratio (1.1-2.1) L 12/17/18 05:13 Amylase 9 Units/L (25-115) L 12/17/18 05:13 Lipase 32 Units/L (73-393) L 12/17/18 05:13 Total PSA 0.15 ng/mL (0.13-4.0) 12/16/18 04:43 Vitamin B12 999 pg/mL (193-986) H 12/16/18 04:43 Folate 16.8 ng/mL (>8.6) 12/16/18 04:43 Specimen Type Clean catch urine 12/15/18 21:07 Urine Color Yellow (YELLOW) 12/15/18 21:07 Urine Appearance Clear (CLEAR) 12/15/18 21:07 Urine pH 5.0 (5.0 - 8.0) 12/15/18 21:07 Ur Specific [place] 1.010 (1.000-1.030) 12/15/18 21:07 Urine Protein 1+ (NEGATIVE) 12/15/18 21:07 Urine Glucose (UA) Negative (NEGATIVE) 12/15/18 21:07 Urine Ketones Negative (NEGATIVE) 12/15/18 21:07 Urine Occult Blood Negative (NEGATIVE) 12/15/18 21:07 Urine Nitrite Negative (NEGATIVE) 12/15/18 21:07 Urine Bilirubin Negative (NEGATIVE) 12/15/18 21:07 Urine Urobilinogen Normal (NORMAL) 12/15/18 21:07 Ur Leukocyte Esterase Negative (NEGATIVE) 12/15/18 21:07 Urine RBC None seen /HPF (NONE SEEN) 12/15/18 21:07 Urine WBC 0-2 /HPF (NONE SEEN) 12/15/18 21:07 Ur Squamous Epith Cells Few /HPF (NEGATIVE) 12/15/18 21:07 Amorphous Sediment Trace /HPF (NEGATIVE) 12/15/18 21:07 Urine Bacteria Trace /HPF (NEGATIVE) 12/15/18 21:07 Hyaline Casts Rare /LPF (NEGATIVE) 12/15/18 21:07 Ur Culture Indicated? No/not indicated 12/15/18 21:07 - Plan (1) Dehydration Status: Acute Plan: NORMAL SALINE AT 80ML/HR, CONTINUE TO MONITOR (2) Abdominal pain Status: Acute Qualifiers: Abdominal location: generalized Qualified Code(s): R10.84 - Generalized abdominal pain Plan: CONSULT , CONTINUE TO MONITOR (3) Anemia Status: Acute Qualifiers: Anemia type: unspecified type Qualified Code(s): D64.9 - Anemia, unspecified (4) Weakness Status: Acute Plan: PHYSICAL THERAPY, CONTINUE TO MONITOR
[2018-12-18] MEDS: FLAGYL IV PREMIX 500 MG BAG 500 MG/100 ML BAG IV SCH ×3 (03:09→20:55)
[2018-12-18] MEDS: NS 1000 ML 1,000 ML IV SCH ×2 (03:09→15:04)
[2018-12-18] MEDS: NEURONTIN CAP 300 MG PO SCH ×4 (06:07→21:33)
[2018-12-18] MEDS: DILAUDID INJ IVP PRN ×2 (06:07→11:34)
[2018-12-18 06:12] LABS: EOSINOPHILS # (AUTO) 0.1 x10^3/uL (0.0-0.2); EOSINOPHILS % (AUTO) 1.4 % (0.9-2.9); HEMATOCRIT 25.1 % (42.0-54.0); HEMOGLOBIN 8.4 g/dL (13.5-18.0); LYMPHOCYTES # (AUTO) 1.3 X10^3/uL (1.3-2.9); LYMPHOCYTES % (AUTO) 31.3 % (21.0-51.0); MEAN CORPUSCULAR HEMOGLOBIN 34.5 pg (27.0-34.0); MEAN CORPUSCULAR HGB CONC 33.4 g/dL (33.0-35.0); MEAN CORPUSCULAR VOLUME 103.3 fL (80.0-100.0); MEAN PLATELET VOLUME 7.6 fL (7.4-11.0); MONOCYTES # (AUTO) 0.4 x10^3/uL (0.3-0.8); MONOCYTES % (AUTO) 10.2 % (0.0-13.0); NEUTROPHILS # (AUTO) 2.3 x10^3/uL (2.2-4.8); NEUTROPHILS % (AUTO) 56.1 % (42.0-75.0); PLATELET COUNT 178 X10^3/uL (150.0-450.0); RED BLOOD COUNT 2.43 X10^6/uL (4.7-6.0); RED CELL DISTRIBUTION WIDTH 14.8 % (11.6-16.5)
[2018-12-18 06:27] LABS: ALANINE AMINOTRANSFERASE 13 Units/L (12-78); ALBUMIN 1.6 g/dL (3.4-5.0); ALKALINE PHOSPHATASE 196 Units/L (46-116); ASPARTATE AMINO TRANSFERASE 39 Units/L (15-37); BLOOD UREA NITROGEN 7 mg/dL (7-18); CALCIUM 7.8 mg/dL (8.5-10.1); CARBON DIOXIDE 21.9 mmol/L (21-32); CHLORIDE 108 mmol/L (98-107); COR CA(FOR HYPOALB) 9.7 mg/dL (8.5-10.1); CREATININE 1.04 mg/dL (0.70-1.30); SODIUM 140 mmol/L (136-145); TOTAL PROTEIN 4.6 g/dL (6.4-8.2); eGFR NON BLACK RACES > 60 (>60)
[2018-12-18] MEDS: FLOMAX PO SCH (09:45)
[2018-12-18] MEDS: PROTONIX INJ 40 MG VIAL IVP SCH ×2 (09:45→21:21)
[2018-12-18] MEDS: ZYLOPRIM PO SCH (09:45)
[2018-12-18] MEDS: MAG-OX TAB PO SCH (09:45)
[2018-12-18] MEDS: CYMBALTA PO SCH (09:46)
[2018-12-18] MEDS: PEPCID 20 MG IV PREMIX* 20 MG/50 ML BAG IV SCH ×2 (09:46→21:21)
[2018-12-18] MEDS: CIPRO IV 400 MG PREMIX* 400 MG/200 ML IV.SOLN. IV SCH ×2 (09:47→21:21)
[2018-12-18] MEDS: NICOTINE PATCH TD SCH (09:47)
[2018-12-18] MEDS: FLONASE NASAL SPRAY ENOSTRIL SCH (09:48)
--- NOTE | 2018-12-18 10:05 | DR.PROGNOT ---
Hospital Progress Notes - Progress Note for Day of: Progress Note Date: 12/18/18 - Chief Complaint Chief Complaint: still having RUQ and mid abdominal pain . no vomiting today - Past Medical Family Social History Past Med/Fam/Surg Hx: No changes since H&P Allergies: Allergies NSAIDS (Non-Steroidal Anti-Inflamma Allergy (Verified 12/11/18 13:20) - Review Of Systems ROS: No change since H&P - Vital Signs Vital Signs: Temperature 98.3 F Pulse Rate [Right] 70 Pulse Rate 90 Respiratory Rate 20 Blood Pressure [Right Arm] 128/71 Blood Pressure [Left Arm] 119/64 Blood Pressure 103/57 O2 Sat by Pulse Oximetry 95 - Physical Exam Oriented: Normal Eyes: Normal Ear: Normal Nose: Normal Throat: Normal Respiratory: Generalized, Diminished Cardiovascular: Normal : Normal GI:Auscultation: Normal GI:Palpation: Normal GI: Tenderness: Diffuse, RUQ (soft abdomen , BS + . RUQ and mid abdominal tenderness , no rebound ), Moderate. negative: Rebound, Guarding, Rigidity Skin: Normal Musculoskeletal: Normal Psychiatric: Normal Mood Description: Calm Affect: Normal Speech Pattern: Clear, Appropriate - Laboratory and Diagnostics Result Diagrams: 12/18/18 04:52 12/18/18 04:52 Labs: Laboratory WBC 4.0 X10^3/uL (3.6-10.0) 12/18/18 04:52 RBC 2.43 X10^6/uL (4.7-6.0) L 12/18/18 04:52 Hgb 8.4 g/dL (13.5-18.0) L 12/18/18 04:52 Hct 25.1 % (42.0-54.0) L 12/18/18 04:52 MCV 103.3 fL (80.0-100.0) H 12/18/18 04:52 MCH 34.5 pg (27.0-34.0) H 12/18/18 04:52 MCHC 33.4 g/dL (33.0-35.0) 12/18/18 04:52 RDW 14.8 % (11.6-16.5) 12/18/18 04:52 Plt Count 178 X10^3/uL (150.0-450.0) 12/18/18 04:52 MPV 7.6 fL (7.4-11.0) 12/18/18 04:52 Neut % (Auto) 56.1 % (42.0-75.0) 12/18/18 04:52 Lymph % (Auto) 31.3 % (21.0-51.0) 12/18/18 04:52 [place] % (Auto) 10.2 % (0.0-13.0) 12/18/18 04:52 Eos % (Auto) 1.4 % (0.9-2.9) 12/18/18 04:52 Baso % (Auto) 1.0 % (0.2-1.0) 12/18/18 04:52 Neut # (Auto) 2.3 x10^3/uL (2.2-4.8) 12/18/18 04:52 Lymph # (Auto) 1.3 X10^3/uL (1.3-2.9) 12/18/18 04:52 Evans # (Auto) 0.4 x10^3/uL (0.3-0.8) 12/18/18 04:52 Eos # (Auto) 0.1 x10^3/uL (0.0-0.2) 12/18/18 04:52 Baso # (Auto) 0.0 X10^3/uL (0.0-0.1) 12/18/18 04:52 Absolute Nucleated RBC 0.1 /100WBC 12/18/18 04:52 Sodium 140 mmol/L (136-145) 12/18/18 04:52 Corrected Sodium TNP 12/18/18 04:52 Potassium 4.1 mmol/L (3.5-5.1) 12/18/18 04:52 Chloride 108 mmol/L (98-107) H 12/18/18 04:52 Carbon Dioxide 21.9 mmol/L (21-32) 12/18/18 04:52 BUN 7 mg/dL (7-18) 12/18/18 04:52 Creatinine 1.04 mg/dL (0.70-1.30) 12/18/18 04:52 Est GFR (MDRD) Af Amer > 60 (>60) 12/18/18 04:52 Est GFR (MDRD) Non-Af > 60 (>60) 12/18/18 04:52 Glucose 97 mg/dL (65-99) 12/18/18 04:52 Calcium 7.8 mg/dL (8.5-10.1) L 12/18/18 04:52 Corrected Calcium 9.7 mg/dL (8.5-10.1) 12/18/18 04:52 Magnesium 1.8 mg/dL (1.7-2.9) 12/17/18 05:13 Iron 73 ug/dL (50-175) 12/16/18 04:43 Transferrin 89 mg/dL (202-364) L 12/16/18 04:43 Ferritin 446 ng/mL (26-388) H 12/16/18 04:43 Total Bilirubin 0.20 mg/dL (0.2-1.0) 12/18/18 04:52 AST 39 Units/L (15-37) H 12/18/18 04:52 ALT 13 Units/L (12-78) 12/18/18 04:52 Alkaline Phosphatase 196 Units/L (46-116) H 12/18/18 04:52 Total Protein 4.6 g/dL (6.4-8.2) L 12/18/18 04:52 Albumin 1.6 g/dL (3.4-5.0) L 12/18/18 04:52 Globulin 3.0 g/dL (2.5-4.5) 12/18/18 04:52 Albumin/Globulin Ratio 0.5 Ratio (1.1-2.1) L 12/18/18 04:52 Amylase 9 Units/L (25-115) L 12/17/18 05:13 Lipase 32 Units/L (73-393) L 12/17/18 05:13 Total PSA 0.15 ng/mL (0.13-4.0) 12/16/18 04:43 Vitamin B12 999 pg/mL (193-986) H 12/16/18 04:43 Folate 16.8 ng/mL (>8.6) 12/16/18 04:43 Specimen Type Clean catch urine 12/15/18 21:07 Urine Color Yellow (YELLOW) 12/15/18 21:07 Urine Appearance Clear (CLEAR) 12/15/18 21:07 Urine pH 5.0 (5.0 - 8.0) 12/15/18 21:07 Ur Specific [place] 1.010 (1.000-1.030) 12/15/18 21:07 Urine Protein 1+ (NEGATIVE) 12/15/18 21:07 Urine Glucose (UA) Negative (NEGATIVE) 12/15/18 21:07 Urine Ketones Negative (NEGATIVE) 12/15/18 21:07 Urine Occult Blood Negative (NEGATIVE) 12/15/18 21:07 Urine Nitrite Negative (NEGATIVE) 12/15/18 21:07 Urine Bilirubin Negative (NEGATIVE) 12/15/18 21:07 Urine Urobilinogen Normal (NORMAL) 12/15/18 21:07 Ur Leukocyte Esterase Negative (NEGATIVE) 12/15/18 21:07 Urine RBC None seen /HPF (NONE SEEN) 12/15/18 21:07 Urine WBC 0-2 /HPF (NONE SEEN) 12/15/18 21:07 Ur Squamous Epith Cells Few /HPF (NEGATIVE) 12/15/18 21:07 Amorphous Sediment Trace /HPF (NEGATIVE) 12/15/18 21:07 Urine Bacteria Trace /HPF (NEGATIVE) 12/15/18 21:07 Hyaline Casts Rare /LPF (NEGATIVE) 12/15/18 21:07 Ur Culture Indicated? No/not indicated 12/15/18 21:07 - Assessment and Plan 1: abdominal pain with colitis of TC and Lt side ( on IV Flagyl ). moderate anemia . cholelathiasis and recurrent biliary colics . anemia , GERD . liver dysfunction . to treat the colitis now . will plan for GI endoscopy in few days the future Lap Heide - Problem Patient Problems: Patient Problems Dehydration (Acute) E86.0 Abdominal pain (Acute) R10.9
[2018-12-18] MEDS: WELLBUTRIN XL 150 MG (DAILY) PO SCH (11:30)
[2018-12-19] MEDS: NS 1000 ML 1,000 ML IV SCH ×4 (01:16→19:42)
[2018-12-19] MEDS: FLAGYL IV PREMIX 500 MG BAG 500 MG/100 ML BAG IV SCH ×3 (03:17→19:43)
[2018-12-19] MEDS: ROXICODONE TAB 5 MG PO PRN ×2 (04:31→10:41)
[2018-12-19 05:02] LABS: BASOPHILS % (AUTO) 1.2 % (0.2-1.0); EOSINOPHILS % (AUTO) 0.6 % (0.9-2.9); HEMOGLOBIN 8.8 g/dL (13.5-18.0); LYMPHOCYTES # (AUTO) 0.5 X10^3/uL (1.3-2.9); LYMPHOCYTES % (AUTO) 13.1 % (21.0-51.0); MEAN CORPUSCULAR HEMOGLOBIN 34.7 pg (27.0-34.0); MEAN CORPUSCULAR HGB CONC 33.7 g/dL (33.0-35.0); MEAN CORPUSCULAR VOLUME 102.9 fL (80.0-100.0); MEAN PLATELET VOLUME 7.4 fL (7.4-11.0); MONOCYTES # (AUTO) 0.3 x10^3/uL (0.3-0.8); MONOCYTES % (AUTO) 7.8 % (0.0-13.0); NEUTROPHILS # (AUTO) 2.8 x10^3/uL (2.2-4.8); NEUTROPHILS % (AUTO) 77.3 % (42.0-75.0); PLATELET COUNT 172 X10^3/uL (150.0-450.0); RED BLOOD COUNT 2.53 X10^6/uL (4.7-6.0); RED CELL DISTRIBUTION WIDTH 14.7 % (11.6-16.5); WHITE BLOOD COUNT 3.7 X10^3/uL (3.6-10.0)
[2018-12-19 05:15] LABS: ALANINE AMINOTRANSFERASE 12 Units/L (12-78); ALBUMIN 1.7 g/dL (3.4-5.0); ALKALINE PHOSPHATASE 199 Units/L (46-116); ASPARTATE AMINO TRANSFERASE 38 Units/L (15-37); BLOOD UREA NITROGEN 7 mg/dL (7-18); CARBON DIOXIDE 21.8 mmol/L (21-32); CHLORIDE 107 mmol/L (98-107); COR CA(FOR HYPOALB) 9.8 mg/dL (8.5-10.1); CREATININE 0.95 mg/dL (0.70-1.30); SODIUM 139 mmol/L (136-145); TOTAL PROTEIN 4.8 g/dL (6.4-8.2); eGFR NON BLACK RACES > 60 (>60)
[2018-12-19] MEDS: NEURONTIN CAP 300 MG PO SCH ×3 (05:24→22:03)
[2018-12-19] MEDS: DILAUDID INJ IVP PRN ×3 (06:30→20:34)
--- NOTE | 2018-12-19 08:17 | PCM.PROG ---
Progress Note - Progress Note for Day of Date of Exam: 12/18/18 - Subjective Subjective: WAS ADMITTED FOR DEHYDRATION, ABDOMINAL PAIN, AND GENERALIZED WEAKNESS. HE CONTINUES WITH COMPLAINTS OF ABDOMINAL PAIN TODAY. HE ALSO REPORTS PAIN TO BILATERAL UPPER AND LOWER EXTREMITIES, BUT REPORTS IMPROVEMENT SINCE YESTERDAY. ON EXAMINATION, HEART IS REGULAR IN RATE AND RHYTHM. BILATERAL LUNGS ARE NOTED WITH DIMINISHED LUNG SOUNDS THROUGHOUT. ABDOMEN IS ROUND, SOFT, AND NOTED WITH DIFFUSE TENDERNESS THROUGHOUT. NORMAL BOWEL SOUNDS NOTED IN ALL QUADRANTS. HIS VITALS THIS MORNING ARE 98.2-82-20-93%-141/65. LABS WERE OBTAINED. ABNORMAL LAB VALUES INCLUDE THE FOLLOWING: RBC 2.43, HGB 8.4, HCT 25.1, CHLORIDE 108, CALCIUM 7.8, AST 39, ALK PHOS 196, TOTAL PROTEIN 4.6, ALBUMIN 1.6. CONSULTED WITH PATIENT YESTERDAY AND OBTAINED AN ABDOMEN/PELVIS CT. IT REVEALED: Scattered areas of circumferential colonic bowel wall edema in the transverse, descending and rectosigmoid colon suggestive of nonspecific colitis. There is associated perirectal and presacral fat stranding with a small amount of free fluid in the pelvis, likely reactive in nature. Cholelithiasis. Small bilateral pleural effusions. Avascular necrosis of the bilateral hips. HE RECOMMENDS WAITING ON CHOLECYSTECTOMY UNTIL COLITIS IS TREATED. HE IS COOPERATING WELL WITH PHYSICAL THERAPY. TODAY, WE WILL ADD WELLBUTRIN 150MG PO DAILY. OTHERWISE, WE FOLLOW UP WITH AM LABS AND CONTINUE TO MONITOR. - Past Medical Family Social History Past Med/Fam/Surg Hx: No changes since H&P Allergies: Allergies NSAIDS (Non-Steroidal Anti-Inflamma Allergy (Verified 12/11/18 13:20) - Review of Systems ROS: No change since H&P - Vital Signs and I&O's Vital Signs: Temperature 98.3 F Pulse Rate [Right] 90 Pulse Rate 90 Respiratory Rate 20 Blood Pressure [Right Arm] 128/71 Blood Pressure [Left Arm] 106/64 Blood Pressure 103/57 O2 Sat by Pulse Oximetry 94 Intake and Output: Intake & Output 12/16/18 12/17/18 12/18/18 12/19/18 11:59 11:59 11:59 11:59 Intake Total 720 / 720 1787 / 1787 1400 / 1400 2680 / 2680 Output Total 425 / 425 550 / 550 500 / 500 680 / 680 Balance 295 / 295 1237 / 1237 900 / 900 1999 / 1999 - Physical Exam Oriented: Normal Eyes: Normal Ear: Normal Nose: Normal Throat: Normal Respiratory: Generalized, Diminished Cardiovascular: Normal : Normal Auscultation: Bowel Sounds: Normal Palpation: Normal Tenderness: Diffuse, RUQ (soft abdomen , BS + . RUQ and mid abdominal tenderness , no rebound ), Moderate. negative: Rebound, Guarding, Rigidity Skin: Normal Musculoskeletal: Normal Psychiatric: Normal Mood Description: Calm Affect: Normal Speech Pattern: Clear, Appropriate - Laboratory and Diagnostics Result Diagrams: 12/19/18 04:40 12/19/18 04:40 Labs: Laboratory WBC 3.7 X10^3/uL (3.6-10.0) 12/19/18 04:40 RBC 2.53 X10^6/uL (4.7-6.0) L 12/19/18 04:40 Hgb 8.8 g/dL (13.5-18.0) L 12/19/18 04:40 Hct 26.0 % (42.0-54.0) L 12/19/18 04:40 MCV 102.9 fL (80.0-100.0) H 12/19/18 04:40 MCH 34.7 pg (27.0-34.0) H 12/19/18 04:40 MCHC 33.7 g/dL (33.0-35.0) 12/19/18 04:40 RDW 14.7 % (11.6-16.5) 12/19/18 04:40 Plt Count 172 X10^3/uL (150.0-450.0) 12/19/18 04:40 MPV 7.4 fL (7.4-11.0) 12/19/18 04:40 Neut % (Auto) 77.3 % (42.0-75.0) H 12/19/18 04:40 Lymph % (Auto) 13.1 % (21.0-51.0) L 12/19/18 04:40 [place] % (Auto) 7.8 % (0.0-13.0) 12/19/18 04:40 Eos % (Auto) 0.6 % (0.9-2.9) L 12/19/18 04:40 Baso % (Auto) 1.2 % (0.2-1.0) H 12/19/18 04:40 Neut # (Auto) 2.8 x10^3/uL (2.2-4.8) 12/19/18 04:40 Lymph # (Auto) 0.5 X10^3/uL (1.3-2.9) L 12/19/18 04:40 [place] # (Auto) 0.3 x10^3/uL (0.3-0.8) 12/19/18 04:40 Eos # (Auto) 0.0 x10^3/uL (0.0-0.2) 12/19/18 04:40 Baso # (Auto) 0.0 X10^3/uL (0.0-0.1) 12/19/18 04:40 Absolute Nucleated RBC 0.1 /100WBC 12/19/18 04:40 Sodium 139 mmol/L (136-145) 12/19/18 04:40 Corrected Sodium TNP 12/19/18 04:40 Potassium 4.2 mmol/L (3.5-5.1) 12/19/18 04:40 Chloride 107 mmol/L (98-107) 12/19/18 04:40 Carbon Dioxide 21.8 mmol/L (21-32) 12/19/18 04:40 BUN 7 mg/dL (7-18) 12/19/18 04:40 Creatinine 0.95 mg/dL (0.70-1.30) 12/19/18 04:40 Est GFR (MDRD) Af Amer > 60 (>60) 12/19/18 04:40 Est GFR (MDRD) Non-Af > 60 (>60) 12/19/18 04:40 Glucose 107 mg/dL (65-99) H 12/19/18 04:40 Calcium 8.0 mg/dL (8.5-10.1) L 12/19/18 04:40 Corrected Calcium 9.8 mg/dL (8.5-10.1) 12/19/18 04:40 Magnesium 1.8 mg/dL (1.7-2.9) 12/17/18 05:13 Iron 73 ug/dL (50-175) 12/16/18 04:43 Transferrin 89 mg/dL (202-364) L 12/16/18 04:43 Ferritin 446 ng/mL (26-388) H 12/16/18 04:43 Total Bilirubin 0.40 mg/dL (0.2-1.0) 12/19/18 04:40 AST 38 Units/L (15-37) H 12/19/18 04:40 ALT 12 Units/L (12-78) 12/19/18 04:40 Alkaline Phosphatase 199 Units/L (46-116) H 12/19/18 04:40 Total Protein 4.8 g/dL (6.4-8.2) L 12/19/18 04:40 Albumin 1.7 g/dL (3.4-5.0) L 12/19/18 04:40 Globulin 3.1 g/dL (2.5-4.5) 12/19/18 04:40 Albumin/Globulin Ratio 0.5 Ratio (1.1-2.1) L 12/19/18 04:40 Amylase 9 Units/L (25-115) L 12/17/18 05:13 Lipase 32 Units/L (73-393) L 12/17/18 05:13 Total PSA 0.15 ng/mL (0.13-4.0) 12/16/18 04:43 Vitamin B12 999 pg/mL (193-986) H 12/16/18 04:43 Folate 16.8 ng/mL (>8.6) 12/16/18 04:43 Specimen Type Clean catch urine 12/15/18 21:07 Urine Color Yellow (YELLOW) 12/15/18 21:07 Urine Appearance Clear (CLEAR) 12/15/18 21:07 Urine pH 5.0 (5.0 - 8.0) 12/15/18 21:07 Ur Specific [place] 1.010 (1.000-1.030) 12/15/18 21:07 Urine Protein 1+ (NEGATIVE) 12/15/18 21:07 Urine Glucose (UA) Negative (NEGATIVE) 12/15/18 21:07 Urine Ketones Negative (NEGATIVE) 12/15/18 21:07 Urine Occult Blood Negative (NEGATIVE) 12/15/18 21:07 Urine Nitrite Negative (NEGATIVE) 12/15/18 21:07 Urine Bilirubin Negative (NEGATIVE) 12/15/18 21:07 Urine Urobilinogen Normal (NORMAL) 12/15/18 21:07 Ur Leukocyte Esterase Negative (NEGATIVE) 12/15/18 21:07 Urine RBC None seen /HPF (NONE SEEN) 12/15/18 21:07 Urine WBC 0-2 /HPF (NONE SEEN) 12/15/18 21:07 Ur Squamous Epith Cells Few /HPF (NEGATIVE) 12/15/18 21:07 Amorphous Sediment Trace /HPF (NEGATIVE) 12/15/18 21:07 Urine Bacteria Trace /HPF (NEGATIVE) 12/15/18 21:07 Hyaline Casts Rare /LPF (NEGATIVE) 12/15/18 21:07 Ur Culture Indicated? No/not indicated 12/15/18 21:07 - Plan (1) Dehydration Status: Acute Plan: NORMAL SALINE AT 80ML/HR, CONTINUE TO MONITOR (2) Abdominal pain Status: Acute Qualifiers: Abdominal location: generalized Qualified Code(s): R10.84 - Generalized abdominal pain Plan: CONSULT , CONTINUE TO MONITOR (3) Colitis Status: Acute Plan: IV CIPRO AND FLAGYL, CONTINUE TO MONITOR (4) Anemia Status: Inactive Qualifiers: Anemia type: unspecified type Qualified Code(s): D64.9 - Anemia, unspec ified (5) Weakness Status: Acute Plan: PHYSICAL THERAPY, CONTINUE TO MONITOR
[2018-12-19] MEDS: NICOTINE PATCH TD SCH (08:20)
[2018-12-19] MEDS: PEPCID 20 MG IV PREMIX* 20 MG/50 ML BAG IV SCH ×2 (08:21→20:33)
[2018-12-19] MEDS: CIPRO IV 400 MG PREMIX* 400 MG/200 ML IV.SOLN. IV SCH ×2 (08:21→20:33)
[2018-12-19] MEDS: FLOMAX PO SCH (08:22)
[2018-12-19] MEDS: CYMBALTA PO SCH (08:22)
[2018-12-19] MEDS: ZYLOPRIM PO SCH (08:22)
[2018-12-19] MEDS: MAG-OX TAB PO SCH (08:22)
[2018-12-19] MEDS: WELLBUTRIN XL 150 MG (DAILY) PO SCH (08:22)
[2018-12-19] MEDS: PROTONIX INJ 40 MG VIAL IVP SCH ×2 (08:22→20:33)
[2018-12-19] MEDS: FLONASE NASAL SPRAY ENOSTRIL SCH (08:23)
[2018-12-19] MEDS: COLACE CAP 100 MG PO SCH (13:14)
[2018-12-19] MEDS: MILK OF MAGNESIA PO SCH (13:15)
[2018-12-20] MEDS: COLACE CAP 100 MG PO SCH ×2 (01:34→13:11)
[2018-12-20] MEDS: MILK OF MAGNESIA PO SCH ×2 (01:35→13:11)
[2018-12-20] MEDS: FLAGYL IV PREMIX 500 MG BAG 500 MG/100 ML BAG IV SCH ×3 (03:45→19:52)
[2018-12-20] MEDS: DILAUDID INJ IVP PRN ×2 (03:45→16:56)
[2018-12-20] MEDS: NEURONTIN CAP 300 MG PO SCH ×3 (05:07→21:48)
[2018-12-20 05:45] LABS: ALANINE AMINOTRANSFERASE 12 Units/L (12-78); ALBUMIN 1.6 g/dL (3.4-5.0); ALKALINE PHOSPHATASE 179 Units/L (46-116); ASPARTATE AMINO TRANSFERASE 35 Units/L (15-37); BLOOD UREA NITROGEN 6 mg/dL (7-18); CALCIUM 7.8 mg/dL (8.5-10.1); CARBON DIOXIDE 22.9 mmol/L (21-32); CHLORIDE 106 mmol/L (98-107); COR CA(FOR HYPOALB) 9.7 mg/dL (8.5-10.1); CREATININE 0.87 mg/dL (0.70-1.30); SODIUM 137 mmol/L (136-145); TOTAL PROTEIN 4.7 g/dL (6.4-8.2); eGFR NON BLACK RACES > 60 (>60)
[2018-12-20 07:01] LABS: BASOPHILS % (AUTO) 1.1 % (0.2-1.0); EOSINOPHILS % (AUTO) 0.4 % (0.9-2.9); HEMATOCRIT 23.7 % (42.0-54.0); HEMOGLOBIN 7.9 g/dL (13.5-18.0); LYMPHOCYTES # (AUTO) 0.6 X10^3/uL (1.3-2.9); LYMPHOCYTES % (AUTO) 19.8 % (21.0-51.0); MEAN CORPUSCULAR HEMOGLOBIN 34.7 pg (27.0-34.0); MEAN CORPUSCULAR HGB CONC 33.5 g/dL (33.0-35.0); MEAN CORPUSCULAR VOLUME 103.7 fL (80.0-100.0); MEAN PLATELET VOLUME 7.7 fL (7.4-11.0); MONOCYTES # (AUTO) 0.3 x10^3/uL (0.3-0.8); MONOCYTES % (AUTO) 12.3 % (0.0-13.0); NEUTROPHILS # (AUTO) 1.9 x10^3/uL (2.2-4.8); NEUTROPHILS % (AUTO) 66.4 % (42.0-75.0); PLATELET COUNT 172 X10^3/uL (150.0-450.0); RED BLOOD COUNT 2.29 X10^6/uL (4.7-6.0); RED CELL DISTRIBUTION WIDTH 14.9 % (11.6-16.5); WHITE BLOOD COUNT 2.8 X10^3/uL (3.6-10.0)
[2018-12-20 07:03] LABS: PLATELET MORPHOLOGY COMMENT NORMAL (NORMAL)
[2018-12-20] MEDS: DEMEROL INJ IVP PRN ×3 (07:48→19:38)
[2018-12-20] MEDS: FLOMAX PO SCH ×2 (08:48→08:50)
[2018-12-20] MEDS: ZYLOPRIM PO SCH (08:48)
[2018-12-20] MEDS: PEPCID 20 MG IV PREMIX* 20 MG/50 ML BAG IV SCH ×2 (08:48→20:28)
[2018-12-20] MEDS: CIPRO IV 400 MG PREMIX* 400 MG/200 ML IV.SOLN. IV SCH ×2 (08:48→20:27)
[2018-12-20] MEDS: WELLBUTRIN XL 150 MG (DAILY) PO SCH (08:48)
[2018-12-20] MEDS: MAG-OX TAB PO SCH (08:48)
[2018-12-20] MEDS: PROTONIX INJ 40 MG VIAL IVP SCH ×2 (08:49→20:28)
[2018-12-20] MEDS: CYMBALTA PO SCH (08:49)
[2018-12-20] MEDS: FLONASE NASAL SPRAY ENOSTRIL SCH (08:50)
[2018-12-20] MEDS: NICOTINE PATCH TD SCH (08:50)
[2018-12-20] MEDS ORDERED: VALIUM ONE (13:28)
[2018-12-20] MEDS: VALIUM PO PRN (13:29)
[2018-12-20] MEDS: ROXICODONE TAB 5 MG PO PRN (15:52)
[2018-12-20] MEDS: NS 1000 ML 1,000 ML IV SCH ×2 (16:29→20:28)
[2018-12-21] MEDS: MILK OF MAGNESIA PO SCH ×2 (01:30→13:02)
[2018-12-21] MEDS: COLACE CAP 100 MG PO SCH ×2 (01:30→13:02)
[2018-12-21] MEDS: ROXICODONE TAB 5 MG PO PRN ×3 (02:19→20:42)
[2018-12-21] MEDS: FLAGYL IV PREMIX 500 MG BAG 500 MG/100 ML BAG IV SCH ×3 (03:23→19:56)
[2018-12-21] MEDS: NEURONTIN CAP 300 MG PO SCH ×3 (05:01→22:00)
[2018-12-21 05:35] LABS: BASOPHILS % (AUTO) 0.6 % (0.2-1.0); EOSINOPHILS % (AUTO) 0.2 % (0.9-2.9); HEMATOCRIT 23.9 % (42.0-54.0); HEMOGLOBIN 8.1 g/dL (13.5-18.0); LYMPHOCYTES # (AUTO) 0.7 X10^3/uL (1.3-2.9); LYMPHOCYTES % (AUTO) 15.8 % (21.0-51.0); MEAN CORPUSCULAR HEMOGLOBIN 34.8 pg (27.0-34.0); MEAN CORPUSCULAR HGB CONC 33.8 g/dL (33.0-35.0); MEAN CORPUSCULAR VOLUME 102.9 fL (80.0-100.0); MEAN PLATELET VOLUME 7.1 fL (7.4-11.0); MONOCYTES # (AUTO) 0.4 x10^3/uL (0.3-0.8); NEUTROPHILS # (AUTO) 3.4 x10^3/uL (2.2-4.8); NEUTROPHILS % (AUTO) 74.4 % (42.0-75.0); PLATELET COUNT 188 X10^3/uL (150.0-450.0); RED BLOOD COUNT 2.32 X10^6/uL (4.7-6.0); RED CELL DISTRIBUTION WIDTH 14.5 % (11.6-16.5); WHITE BLOOD COUNT 4.6 X10^3/uL (3.6-10.0)
[2018-12-21 05:43] LABS: ALANINE AMINOTRANSFERASE 11 Units/L (12-78); ALBUMIN 1.6 g/dL (3.4-5.0); ALKALINE PHOSPHATASE 167 Units/L (46-116); ASPARTATE AMINO TRANSFERASE 36 Units/L (15-37); BLOOD UREA NITROGEN 4 mg/dL (7-18); CALCIUM 7.6 mg/dL (8.5-10.1); CARBON DIOXIDE 21.8 mmol/L (21-32); CHLORIDE 105 mmol/L (98-107); COR CA(FOR HYPOALB) 9.5 mg/dL (8.5-10.1); SODIUM 138 mmol/L (136-145); TOTAL PROTEIN 4.5 g/dL (6.4-8.2); eGFR NON BLACK RACES > 60 (>60)
[2018-12-21] MEDS: K-DUR TAB 20 MEQ PO PRN (06:17)
[2018-12-21] MEDS: DEMEROL INJ IVP PRN ×2 (07:50→18:16)
[2018-12-21] MEDS: ZYLOPRIM PO SCH (08:59)
[2018-12-21] MEDS: PROTONIX INJ 40 MG VIAL IVP SCH ×2 (08:59→20:01)
[2018-12-21] MEDS: MAG-OX TAB PO SCH (08:59)
[2018-12-21] MEDS: WELLBUTRIN XL 150 MG (DAILY) PO SCH (08:59)
[2018-12-21] MEDS: FLOMAX PO SCH (08:59)
[2018-12-21] MEDS: CIPRO IV 400 MG PREMIX* 400 MG/200 ML IV.SOLN. IV SCH ×2 (09:00→20:00)
[2018-12-21] MEDS: PEPCID 20 MG IV PREMIX* 20 MG/50 ML BAG IV SCH ×2 (09:00→20:00)
[2018-12-21] MEDS: NICOTINE PATCH TD SCH (09:01)
[2018-12-21] MEDS: FLONASE NASAL SPRAY ENOSTRIL SCH (09:04)
[2018-12-21] MEDS: CYMBALTA PO SCH ×2 (09:21→09:26)
[2018-12-21] MEDS: DILAUDID INJ IVP PRN (10:44)
[2018-12-21] MEDS: TYLENOL 325 MG TAB PO PRN (13:29)
[2018-12-21] MEDS: NS 1000 ML 1,000 ML IV SCH ×2 (17:54→17:55)
[2018-12-21 18:17] LABS: HEMATOCRIT 24.5 % (42.0-54.0); HEMOGLOBIN 8.2 g/dL (13.5-18.0)
--- NOTE | 2018-12-21 19:11 | PCM.PROG ---
Progress Note - Progress Note for Day of Date of Exam: 12/19/18 - Subjective Subjective: WAS ADMITTED FOR DEHYDRATION, COLITIS, AND GENERALIZED WEAKNESS. HE CONTINUES WITH COMPLAINTS OF ABDOMINAL PAIN TODAY AND PAIN TO UPPER AND LOWER EXTREMITIES. ON EXAMINATION, HEART IS REGULAR IN RATE AND RHYTHM. BILATERAL LUNGS ARE NOTED WITH DIMINISHED LUNG SOUNDS THROUGHOUT. ABDOMEN IS ROUND, SOFT, AND NOTED WITH DIFFUSE TENDERNESS THROUGHOUT. NORMAL BOWEL SOUNDS NOTED IN ALL QUADRANTS. HIS VITALS THIS MORNING ARE 98.3-90-20-94%-106/64. LABS WERE OBTAINED. ABNORMAL LAB VALUES INCLUDE THE FOLLOWING: RBC 2.53, HGB 8.8, HCT 26.0, GLUCOSE 107, CALCIUM 8.0, AST 38, ALK PHOS 199, TOTAL PROTEIN 4.8, ALBUMIN 1.7. HE IS COOPERATING WELL WITH PHYSICAL THERAPY. HE IS CURRENTLY RECEIVING IV CIPRO AND FLAGYL. WE WILL CONTINUE WITH CURRENT PLAN OF CARE TODAY. OTHERWISE, WE FOLLOW UP WITH AM LABS AND CONTINUE TO MONITOR. - Past Medical Family Social History Past Med/Fam/Surg Hx: No changes since H&P Allergies: Allergies NSAIDS (Non-Steroidal Anti-Inflamma Allergy (Verified 12/11/18 13:20) - Review of Systems ROS: No change since H&P - Vital Signs and I&O's Vital Signs: Temperature 98.3 F Pulse Rate [Right] 84 Pulse Rate 90 Respiratory Rate 20 Blood Pressure [Right Arm] 125/67 Blood Pressure [Left Arm] 98/54 Blood Pressure 103/57 O2 Sat by Pulse Oximetry 92 Intake and Output: Intake & Output 12/19/18 12/20/18 12/21/18 12/22/18 11:59 11:59 11:59 11:59 Intake Total 2680 / 2680 1600 / 1600 2040 / 2040 460 / 460 Output Total 680 / 680 395 / 395 1402 / 1402 500 / 500 Balance 1999 / 1999 1205 / 1205 638 / 638 -40 / -40 - Physical Exam Oriented: Normal Eyes: Normal Ear: Normal Nose: Normal Throat: Normal Respiratory: Generalized, Diminished Cardiovascular: Normal : Normal Auscultation: Bowel Sounds: Normal Palpation: Normal Tenderness: Diffuse, RUQ (soft abdomen , BS + . RUQ and mid abdominal tenderness , no rebound ), Moderate. negative: Rebound, Guarding, Rigidity Skin: Normal Musculoskeletal: Normal Psychiatric: Normal Mood Description: Calm Affect: Normal Speech Pattern: Clear, Appropriate - Laboratory and Diagnostics Result Diagrams: 12/21/18 18:00 12/21/18 04:58 Labs: Laboratory WBC 4.6 X10^3/uL (3.6-10.0) 12/21/18 04:58 RBC 2.32 X10^6/uL (4.7-6.0) L 12/21/18 04:58 Hgb 8.2 g/dL (13.5-18.0) L 12/21/18 18:00 Hct 24.5 % (42.0-54.0) L 12/21/18 18:00 MCV 102.9 fL (80.0-100.0) H 12/21/18 04:58 MCH 34.8 pg (27.0-34.0) H 12/21/18 04:58 MCHC 33.8 g/dL (33.0-35.0) 12/21/18 04:58 RDW 14.5 % (11.6-16.5) 12/21/18 04:58 Plt Count 188 X10^3/uL (150.0-450.0) 12/21/18 04:58 Plt Count Comment Adequate (ADEQUATE) 12/20/18 04:50 MPV 7.1 fL (7.4-11.0) L 12/21/18 04:58 Neut % (Auto) 74.4 % (42.0-75.0) 12/21/18 04:58 Lymph % (Auto) 15.8 % (21.0-51.0) L 12/21/18 04:58 [place] % (Auto) 9.0 % (0.0-13.0) 12/21/18 04:58 Eos % (Auto) 0.2 % (0.9-2.9) L 12/21/18 04:58 Baso % (Auto) 0.6 % (0.2-1.0) 12/21/18 04:58 Neut # (Auto) 3.4 x10^3/uL (2.2-4.8) 12/21/18 04:58 Lymph # (Auto) 0.7 X10^3/uL (1.3-2.9) L 12/21/18 04:58 [place] # (Auto) 0.4 x10^3/uL (0.3-0.8) 12/21/18 04:58 Eos # (Auto) 0.0 x10^3/uL (0.0-0.2) 12/21/18 04:58 Baso # (Auto) 0.0 X10^3/uL (0.0-0.1) 12/21/18 04:58 Absolute Nucleated RBC 0.1 /100WBC 12/21/18 04:58 Plt Morphology Comment Normal (NORMAL) 12/20/18 04:50 RBC Morphology Normal (NORMAL) 12/20/18 04:50 Sodium 138 mmol/L (136-145) 12/21/18 04:58 Corrected Sodium TNP 12/21/18 04:58 Potassium 3.6 mmol/L (3.5-5.1) 12/21/18 04:58 Chloride 105 mmol/L (98-107) 12/21/18 04:58 Carbon Dioxide 21.8 mmol/L (21-32) 12/21/18 04:58 BUN 4 mg/dL (7-18) L 12/21/18 04:58 Creatinine 0.80 mg/dL (0.70-1.30) 12/21/18 04:58 Est GFR (MDRD) Af Amer > 60 (>60) 12/21/18 04:58 Est GFR (MDRD) Non-Af > 60 (>60) 12/21/18 04:58 Glucose 102 mg/dL (65-99) H 12/21/18 04:58 Calcium 7.6 mg/dL (8.5-10.1) L 12/21/18 04:58 Corrected Calcium 9.5 mg/dL (8.5-10.1) 12/21/18 04:58 Magnesium 1.8 mg/dL (1.7-2.9) 12/17/18 05:13 Iron 73 ug/dL (50-175) 12/16/18 04:43 Transferrin 89 mg/dL (202-364) L 12/16/18 04:43 Ferritin 446 ng/mL (26-388) H 12/16/18 04:43 Total Bilirubin 0.20 mg/dL (0.2-1.0) 12/21/18 04:58 AST 36 Units/L (15-37) 12/21/18 04:58 ALT 11 Units/L (12-78) L 12/21/18 04:58 Alkaline Phosphatase 167 Units/L (46-116) H 12/21/18 04:58 Total Protein 4.5 g/dL (6.4-8.2) L 12/21/18 04:58 Albumin 1.6 g/dL (3.4-5.0) L 12/21/18 04:58 Globulin 2.9 g/dL (2.5-4.5) 12/21/18 04:58 Albumin/Globulin Ratio 0.6 Ratio (1.1-2.1) L 12/21/18 04:58 Amylase 9 Units/L (25-115) L 12/17/18 05:13 Lipase 32 Units/L (73-393) L 12/17/18 05:13 Total PSA 0.15 ng/mL (0.13-4.0) 12/16/18 04:43 Vitamin B12 999 pg/mL (193-986) H 12/16/18 04:43 Folate 16.8 ng/mL (>8.6) 12/16/18 04:43 Specimen Type Clean catch urine 12/15/18 21:07 Urine Color Yellow (YELLOW) 12/15/18 21:07 Urine Appearance Clear (CLEAR) 12/15/18 21:07 Urine pH 5.0 (5.0 - 8.0) 12/15/18 21:07 Ur Specific [place] 1.010 (1.000-1.030) 12/15/18 21:07 Urine Protein 1+ (NEGATIVE) 12/15/18 21:07 Urine Glucose (UA) Negative (NEGATIVE) 12/15/18 21:07 Urine Ketones Negative (NEGATIVE) 12/15/18 21:07 Urine Occult Blood Negative (NEGATIVE) 12/15/18 21:07 Urine Nitrite Negative (NEGATIVE) 12/15/18 21:07 Urine Bilirubin Negative (NEGATIVE) 12/15/18 21:07 Urine Urobilinogen Normal (NORMAL) 12/15/18 21:07 Ur Leukocyte Esterase Negative (NEGATIVE) 12/15/18 21:07 Urine RBC None seen /HPF (NONE SEEN) 12/15/18 21:07 Urine WBC 0-2 /HPF (NONE SEEN) 12/15/18 21:07 Ur Squamous Epith Cells Few /HPF (NEGATIVE) 12/15/18 21:07 Amorphous Sediment Trace /HPF (NEGATIVE) 12/15/18 21:07 Urine Bacteria Trace /HPF (NEGATIVE) 12/15/18 21:07 Hyaline Casts Rare /LPF (NEGATIVE) 12/15/18 21:07 Ur Culture Indicated? No/not indicated 12/15/18 21:07 - Plan (1) Dehydration Status: Acute Plan: NORMAL SALINE AT 80ML/HR, CONTINUE TO MONITOR (2) Abdominal pain Status: Acute Qualifiers: Abdominal location: generalized Qualified Code(s): R10.84 - Generalized abdominal pain Plan: CONSULT , CONTINUE TO MONITOR (3) Colitis Status: Acute Plan: IV CIPRO AND FLAGYL, CONTINUE TO MONITOR (4) Anemia Status: Inactive Qualifiers: Anemia type: unspecified type Qualified Code(s): D64.9 - Anemia, unspecified (5) Weakness Status: Acute Plan: PHYSICAL THERAPY, CONTINUE TO MONITOR
[2018-12-22] MEDS: VALIUM PO PRN ×2 (00:55→10:30)
[2018-12-22] MEDS: COLACE CAP 100 MG PO SCH ×2 (01:08→13:11)
[2018-12-22] MEDS: MILK OF MAGNESIA PO SCH ×2 (01:09→13:11)
[2018-12-22] MEDS: FLAGYL IV PREMIX 500 MG BAG 500 MG/100 ML BAG IV SCH ×2 (03:51→11:15)
[2018-12-22 06:29] LABS: BASOPHILS % (AUTO) 0.8 % (0.2-1.0); EOSINOPHILS % (AUTO) 0.3 % (0.9-2.9); HEMATOCRIT 25.8 % (42.0-54.0); HEMOGLOBIN 8.6 g/dL (13.5-18.0); LYMPHOCYTES # (AUTO) 0.9 X10^3/uL (1.3-2.9); LYMPHOCYTES % (AUTO) 18.7 % (21.0-51.0); MEAN CORPUSCULAR HEMOGLOBIN 34.4 pg (27.0-34.0); MEAN CORPUSCULAR HGB CONC 33.2 g/dL (33.0-35.0); MEAN CORPUSCULAR VOLUME 103.7 fL (80.0-100.0); MEAN PLATELET VOLUME 7.7 fL (7.4-11.0); MONOCYTES # (AUTO) 0.4 x10^3/uL (0.3-0.8); MONOCYTES % (AUTO) 8.6 % (0.0-13.0); NEUTROPHILS # (AUTO) 3.5 x10^3/uL (2.2-4.8); NEUTROPHILS % (AUTO) 71.6 % (42.0-75.0); PLATELET COUNT 182 X10^3/uL (150.0-450.0); RED BLOOD COUNT 2.49 X10^6/uL (4.7-6.0); RED CELL DISTRIBUTION WIDTH 14.8 % (11.6-16.5); WHITE BLOOD COUNT 4.8 X10^3/uL (3.6-10.0)
[2018-12-22 06:36] LABS: ALANINE AMINOTRANSFERASE 12 Units/L (12-78); ALBUMIN 1.7 g/dL (3.4-5.0); ALKALINE PHOSPHATASE 172 Units/L (46-116); ASPARTATE AMINO TRANSFERASE 40 Units/L (15-37); BLOOD UREA NITROGEN 4 mg/dL (7-18); CALCIUM 7.9 mg/dL (8.5-10.1); CARBON DIOXIDE 20.8 mmol/L (21-32); CHLORIDE 104 mmol/L (98-107); COR CA(FOR HYPOALB) 9.7 mg/dL (8.5-10.1); COR NA(FOR HYPERGLY) 138 mmol/L (136-145); CREATININE 0.99 mg/dL (0.70-1.30); SODIUM 138 mmol/L (136-145); TOTAL PROTEIN 4.9 g/dL (6.4-8.2); eGFR NON BLACK RACES > 60 (>60)
[2018-12-22] MEDS: FLOMAX PO SCH (08:19)
[2018-12-22] MEDS: MAG-OX TAB PO SCH (08:20)
[2018-12-22] MEDS: ZYLOPRIM PO SCH (08:20)
[2018-12-22] MEDS: NICOTINE PATCH TD SCH (08:20)
[2018-12-22] MEDS: PEPCID 20 MG IV PREMIX* 20 MG/50 ML BAG IV SCH (08:20)
[2018-12-22] MEDS: PROTONIX INJ 40 MG VIAL IVP SCH (08:20)
[2018-12-22] MEDS: WELLBUTRIN XL 150 MG (DAILY) PO SCH (08:20)
[2018-12-22] MEDS: CIPRO IV 400 MG PREMIX* 400 MG/200 ML IV.SOLN. IV SCH (08:21)
[2018-12-22] MEDS: DEMEROL INJ IVP PRN (08:21)
[2018-12-22] MEDS: FLONASE NASAL SPRAY ENOSTRIL SCH (08:23)
[2018-12-22] MEDS: NS 1000 ML 1,000 ML IV SCH ×2 (09:06→11:10)
[2018-12-22] MEDS: CYMBALTA PO SCH (09:06)
[2018-12-22] MEDS: NEURONTIN CAP 300 MG PO SCH ×2 (09:06→13:11)
[2018-12-22 09:16] VITALS: BP 133/70
[2018-12-22 09:27] LABS: CRYPTOSPORIDIUM PARVUM ANTIGEN NEGATIVE (NEGATIVE); GIARDIA LAMBLIA ANTIGEN NEGATIVE (NEGATIVE); STOOL FOR WBC POSITIVE (NEGATIVE)
--- NOTE | 2018-12-22 09:48 | PCM.PROG ---
Progress Note - Progress Note for Day of Date of Exam: 12/21/18 - Subjective Subjective: WAS ADMITTED FOR DEHYDRATION, COLITIS, AND GENERALIZED WEAKNESS. DR MIN CONSULTED EARLIER IN THE WEEK.HE CONTINUES WITH COMPLAINTS OF ABDOMINAL PAIN TODAY AND PAIN TO UPPER AND LOWER EXTREMITIES. HE IS COOPERATING WELL WITH PHYSICAL THERAPY. HE IS CURRENTLY RECEIVING IV CIPRO AND FLAGYL. WBC 4.6 THIS AM, HGB 8.1 BUN 4, CREAT 0.80. WE WILL CONTINUE WITH CURRENT PLAN OF CARE TODAY. OTHERWISE, WE FOLLOW UP WITH AM LABS AND CONTINUE TO MONITOR. - Past Medical Family Social History Past Med/Fam/Surg Hx: No changes since H&P Allergies: Allergies NSAIDS (Non-Steroidal Anti-Inflamma Allergy (Verified 12/11/18 13:20) - Review of Systems ROS: No change since H&P - Vital Signs and I&O's Vital Signs: Temperature 98.0 F Pulse Rate [Right] 88 Pulse Rate 90 Respiratory Rate 20 Blood Pressure [Right Arm] 125/67 Blood Pressure [Left Arm] 133/70 Blood Pressure 103/57 O2 Sat by Pulse Oximetry 93 Intake and Output: Intake & Output 12/19/18 12/20/18 12/21/18 12/22/18 11:59 11:59 11:59 11:59 Intake Total 2680 / 2680 1600 / 1600 2040 / 2040 2540 / 2540 Output Total 680 / 680 395 / 395 1402 / 1402 500 / 500 Balance 1999 / 1999 1205 / 1205 638 / 638 2040 / 2040 - Physical Exam Oriented: Normal Eyes: Normal Ear: Normal Nose: Normal Throat: Normal Respiratory: Generalized, Diminished Cardiovascular: Normal : Normal Auscultation: Bowel Sounds: Normal Tenderness: Diffuse, RUQ (soft abdomen , BS + . RUQ and mid abdominal tenderness , no rebound ), Moderate. negative: Rebound, Guarding, Rigidity Skin: Normal Musculoskeletal: Normal Psychiatric: Normal Mood Description: Calm Affect: Normal Speech Pattern: Clear, Appropriate - Laboratory and Diagnostics Result Diagrams: 12/22/18 05:12 12/22/18 05:12 Labs: 12/22/18 07:29 Stool - Final Laboratory WBC 4.8 X10^3/uL (3.6-10.0) 12/22/18 05:12 RBC 2.49 X10^6/uL (4.7-6.0) L 12/22/18 05:12 Hgb 8.6 g/dL (13.5-18.0) L 12/22/18 05:12 Hct 25.8 % (42.0-54.0) L 12/22/18 05:12 MCV 103.7 fL (80.0-100.0) H 12/22/18 05:12 MCH 34.4 pg (27.0-34.0) H 12/22/18 05:12 MCHC 33.2 g/dL (33.0-35.0) 12/22/18 05:12 RDW 14.8 % (11.6-16.5) 12/22/18 05:12 Plt Count 182 X10^3/uL (150.0-450.0) 12/22/18 05:12 Plt Count Comment Adequate (ADEQUATE) 12/20/18 04:50 MPV 7.7 fL (7.4-11.0) 12/22/18 05:12 Neut % (Auto) 71.6 % (42.0-75.0) 12/22/18 05:12 Lymph % (Auto) 18.7 % (21.0-51.0) L 12/22/18 05:12 [place] % (Auto) 8.6 % (0.0-13.0) 12/22/18 05:12 Eos % (Auto) 0.3 % (0.9-2.9) L 12/22/18 05:12 Baso % (Auto) 0.8 % (0.2-1.0) 12/22/18 05:12 Neut # (Auto) 3.5 x10^3/uL (2.2-4.8) 12/22/18 05:12 Lymph # (Auto) 0.9 X10^3/uL (1.3-2.9) L 12/22/18 05:12 [place] # (Auto) 0.4 x10^3/uL (0.3-0.8) 12/22/18 05:12 Eos # (Auto) 0.0 x10^3/uL (0.0-0.2) 12/22/18 05:12 Baso # (Auto) 0.0 X10^3/uL (0.0-0.1) 12/22/18 05:12 Absolute Nucleated RBC 0.1 /100WBC 12/22/18 05:12 Plt Morphology Comment Normal (NORMAL) 12/20/18 04:50 RBC Morphology Normal (NORMAL) 12/20/18 04:50 Sodium 138 mmol/L (136-145) 12/22/18 05:12 Corrected Sodium 138 mmol/L (136-145) 12/22/18 05:12 Potassium 3.7 mmol/L (3.5-5.1) 12/22/18 05:12 Chloride 104 mmol/L (98-107) 12/22/18 05:12 Carbon Dioxide 20.8 mmol/L (21-32) L 12/22/18 05:12 BUN 4 mg/dL (7-18) L 12/22/18 05:12 Creatinine 0.99 mg/dL (0.70-1.30) 12/22/18 05:12 Est GFR (MDRD) Af Amer > 60 (>60) 12/22/18 05:12 Est GFR (MDRD) Non-Af > 60 (>60) 12/22/18 05:12 Glucose 114 mg/dL (65-99) H 12/22/18 05:12 Calcium 7.9 mg/dL (8.5-10.1) L 12/22/18 05:12 Corrected Calcium 9.7 mg/dL (8.5-10.1) 12/22/18 05:12 Magnesium 1.8 mg/dL (1.7-2.9) 12/17/18 05:13 Iron 73 ug/dL (50-175) 12/16/18 04:43 Transferrin 89 mg/dL (202-364) L 12/16/18 04:43 Ferritin 446 ng/mL (26-388) H 12/16/18 04:43 Total Bilirubin 0.20 mg/dL (0.2-1.0) 12/22/18 05:12 AST 40 Units/L (15-37) H 12/22/18 05:12 ALT 12 Units/L (12-78) 12/22/18 05:12 Alkaline Phosphatase 172 Units/L (46-116) H 12/22/18 05:12 Total Protein 4.9 g/dL (6.4-8.2) L 12/22/18 05:12 Albumin 1.7 g/dL (3.4-5.0) L 12/22/18 05:12 Globulin 3.2 g/dL (2.5-4.5) 12/22/18 05:12 Albumin/Globulin Ratio 0.5 Ratio (1.1-2.1) L 12/22/18 05:12 Amylase 9 Units/L (25-115) L 12/17/18 05:13 Lipase 32 Units/L (73-393) L 12/17/18 05:13 Total PSA 0.15 ng/mL (0.13-4.0) 12/16/18 04:43 Vitamin B12 999 pg/mL (193-986) H 12/16/18 04:43 Folate 16.8 ng/mL (>8.6) 12/16/18 04:43 Specimen Type Clean catch urine 12/15/18 21:07 Urine Color Yellow (YELLOW) 12/15/18 21:07 Urine Appearance Clear (CLEAR) 12/15/18 21:07 Urine pH 5.0 (5.0 - 8.0) 12/15/18 21:07 Ur Specific [place] 1.010 (1.000-1.030) 12/15/18 21:07 Urine Protein 1+ (NEGATIVE) 12/15/18 21:07 Urine Glucose (UA) Negative (NEGATIVE) 12/15/18 21:07 Urine Ketones Negative (NEGATIVE) 12/15/18 21:07 Urine Occult Blood Negative (NEGATIVE) 12/15/18 21:07 Urine Nitrite Negative (NEGATIVE) 12/15/18 21:07 Urine Bilirubin Negative (NEGATIVE) 12/15/18 21:07 Urine Urobilinogen Normal (NORMAL) 12/15/18 21:07 Ur Leukocyte Esterase Negative (NEGATIVE) 12/15/18 21:07 Urine RBC None seen /HPF (NONE SEEN) 12/15/18 21:07 Urine WBC 0-2 /HPF (NONE SEEN) 12/15/18 21:07 Ur Squamous Epith Cells Few /HPF (NEGATIVE) 12/15/18 21:07 Amorphous Sediment Trace /HPF (NEGATIVE) 12/15/18 21:07 Urine Bacteria Trace /HPF (NEGATIVE) 12/15/18 21:07 Hyaline Casts Rare /LPF (NEGATIVE) 12/15/18 21:07 Ur Culture Indicated? No/not indicated 12/15/18 21:07 Stool Description 30g unformed mucoid 12/22/18 07:29 Stl Occult Blood (IFOB) Negative (NEGATIVE) 12/22/18 07:29 Stool for White Cells Positive (NEGATIVE) A 12/22/18 07:29 Cryptosporid parvum Ag Negative (NEGATIVE) 12/22/18 07:29 Giardia lamblia Ag Negative (NEGATIVE) 12/22/18 07:29 - Plan (1) Colitis Status: Acute Plan: IV CIPRO AND FLAGYL, CONTINUE TO MONITOR (2) Abdominal pain Status: Acute Qualifiers: Abdominal location: generalized Qualified Code(s): R10.84 - Generalized abdominal pain Plan: CT REVEALING GALLSTONES, CONSULTING , CONTINUE TO MONITOR (3) Weakness Status: Acute Plan: PHYSICAL THERAPY, CONTINUE TO MONITOR (4) Hypothyroidism (acquired) Status: Chronic
[2018-12-22] MEDS: ROXICODONE TAB 5 MG PO PRN (10:29)
[2018-12-22] MEDS: TYLENOL 325 MG TAB PO PRN (11:10)
== END 2018-12-22 14:55 | disposition home health service (06) | DRG 392 ==
LOC: MED/SURG 17:57 → ER 17:57 → MED/SURG 22:46
PROVIDERS: ADMIT Internal Medicine; ATTEND Internal Medicine
DX: R10.84 Generalized abdominal pain; E86.0 Dehydration; R94.31 Abnormal electrocardiogram [ECG] [EKG]; J90 Pleural effusion, not elsewhere classified; K21.9 Gastro-esophageal reflux disease without esophagitis; K52.89 Other specified noninfective gastroenteritis and colitis; D64.89 Other specified anemias; R53.1 Weakness; R26.89 Other abnormalities of gait and mobility; R11.2 Nausea with vomiting, unspecified
CPT/HCPCS: 36415; 71010; 71045; 74022; 74176; 76705; 80053; 81001; 82150; 82270; 82607; 82728; 82746; 83540; 83630; 83690; 83735; 84153; 84466; 85014; 85018; 85025; 87045; 87328; 87329; 87427; 87449; 87493; 87899; 93005; 94760; 96365; 97162; 97166; 97530; 97535; 99284; A4222; C9113; S0028; S0030; S0106; G0378; J0744; J1170; J2175; J2405; J3475; J3490; J7030